=== PATIENT | male | born 1960 | race Caucasian/White ===

== ENCOUNTER 2018-11-02 14:45 | Inpatient (IN) | payer MEDICAID ==
[2018-11-02] MEDS ORDERED: Sodium Chloride 0.9% 1,000 ML IV ONE (15:12)
--- NOTE | 2018-11-02 15:14 | ED Physician Chart ---
ED Chief Complaint/HPI - Patient Information Date Seen:: 11/02/18 Time Seen:: 14:50 Chief Complaint:: Fever History of Present Illness:: onset x 3 days of fever, cough, congestion, and weakness; no report of trauma, H /As, neck pain, C/P, SOB, Abd. Pain, A/N/V/D/C, chills, or urinary s/s Historian:: Patient, EMS Review:: Nurse's Note Reviewed, Old Chart Reviewed, EMS run form Reviewed ED Review of Systems - Review of Systems General/Constitutional: Fever, No chills, No weight loss, Weakness, No diaphoresis, No edema, No loss of appetite Skin: No skin lesions, No rash, No bruising Head: No headache, No light-headedness Eyes: No loss of vision, No pain, No diplopia ENT: No earache, No nasal drainage, No sore throat, No tinnitus Neck: No neck pain, No swelling, No thyromegaly, No stiffness, No mass noted Cardio Vascular: No chest pain, No palpitations, No PND, No orthopnea, No edema Pulmonary: No SOB, No cough, No sputum, No wheezing GI: No nausea, No vomiting, No diarrhea, No pain, No melena, No hematochezia, No constipation, No hematemesis G/U: No dysuria, No frequency, No hematuria, No nacturia Musculoskeletal: No bone or joint pain, No back pain, No muscle pain Endocrine: No polyuria, No polydipsia Psychiatric: No prior psych history, No depression, No anxiety, No suicidal ideation, No homicidal ideation, No auditory hallucination, No visual hallucination Hematopoietic: No bruising, No lymphadenopathy Allergic/Immuno: No urticaria, No angioedema Neurological: No syncope, No focal symptoms, Weakness, No paresthesia, No headache, No seizure, No dizziness, Confusion, No vertigo ED Past Medical History - Past Medical History Obtainable: Yes Past Medical History: HTN, Dementia Family History: HTN Social History: Non Smoker, No Alcohol, No Drug Use, Single, Care Facility Surgical History: None Psychiatricy History: Dementia Medication: Reviewed Family Medical History - Family Member Mother History Unknown: Yes ED Physical Exam - Physical Examination General/Constitutional: Awake, Well-developed, well-nourished, Alert, No distress, GCS 15, Non-toxic appearing, Ambulatory Head: Atraumatic Eyes: Lids, conjuctiva normal, PERRL, EOMI Skin: Nl inspection, No rash, No skin lesions, No ecchymosis, Well hydrated, No lymphadenopathy ENMT: External ears, nose nl, TM canals nl, Nasal exam nl, Lips, teeth, gums nl , Oropharynx nl, Tonsils nl Neck: Nontender, Full ROM w/o pain, No JVD, No nuchal rigidity, No bruit, No mass, No stridor Other Neck comments:: supple; no meningeal signs; no cervical tenderness; no bruits Respiratory: Nl effort/Exclusion Other Respiratory comments:: Lungs: + Rales and Rhonchi Cardio Vascular: RRR, No murmur, gallop, rubs, NL S1 S2, Carotid/Femoral/Distal pulses equal bilaterally GI: No tenderness/rebounding/guarding, No organomegaly, No hernia, Normal BS's, Nondistended, No mass/bruits, No McBurney tenderness, Rectum exam nl Other GI comments:: no pulsatile masses : No CVA tenderness Extremities: No tenderness or effusion, Full ROM, normal strength in all extremities, No edema, Normal digits & nails Neuro/Psych: Alert/oriented, DTR's symmetric, Normal sensory exam, Normal motor strength, Judgement/insight normal, Mood normal, Normal gait, No focal deficits Misc: Normal back, No paraspinal tenderness ED Labs/Radiology/EKG Results - Lab Results Comments:: Reviewed - Radiology Results Comments:: CXR: + Infiltrate - EKG Interpretations EKG Time:: 16:09 Rate & Rhythm: 106; ST Comments:: non-specific st-t changes ED Septic Shock - . Is Septic Shock (SBP<90, OR Lactate>4 mmol\L) present?: No ED Reassessment (Disposition) - Reassessment Reassessment Condition:: Improved - Diagnosis Diagnosis:: Weakness; Fever; Cough; Congestion; Leukocytosis; Anemia; Hyperglycemia; Tachycardia; Hypotension; Hypovolemia; Dehydration; Hypokalemia; Hypoalbuminemia ; Pneumonia; Sepsis - Aftercare/Follow up Instructions Aftercare/Follow-Up Instructions:: Counseled pt regarding lab results/diagnosis & need follow up, Counseled pt & family regarding lab results/diagnosis & need follow up - Patient Disposition Discharge/Transfer:: Acute Care w/in this hosp Accepting Physician:: Dr. Rose Marie Rondon Time Called:: 1644 Time Responded:: 16:45 Admitted to:: Telemetry Spoke to:: Dr. Rose Marie Rondon Admitting Medical Physician:: Dr. Rose Marie Rondon Condition at Disposition:: Stable, Improved
[2018-11-02 15:54] LABS: HEMOGLOBIN 8.8 gm/dL (12-16); MEAN CELL VOLUME 86.2 fl (80-99); MEAN CORPUSCULAR HEMOGLOBIN 28.1 pg (26.0-30.0); MEAN CORPUSCULAR HGB CONC 32.6 pg (28.0-36.0); PLATELET COUNT 466 Th/cmm (150-400); RED BLOOD COUNT 3.14 Mil/cmm (4.30-5.70); RED CELL DISTRIBUTION WIDTH 19.8 % (11.5-20.0); WHITE BLOOD COUNT 13.1 Th/cmm (4.8-10.8)
[2018-11-02 16:09] LABS: ALB/GLOB RATIO 0.7 (1.0-1.8); ALKALINE PHOSPHATASE 63 U/L (34-104); ANION GAP 14.4 (7.0-16.0); BILIRUBIN,TOTAL 0.4 mg/dL (0.3-1.0); BUN - UREA NITROGEN 17 mg/dL (7-25); CALCIUM SERUM 8.4 mg/dL (8.6-10.3); CARBON DIOXIDE 24.9 mEq/L (21.0-31.0); CHLORIDE 101 mEq/L (98-107); CREATININE - SERUM 0.6 mg/dL (0.7-1.3); CREATININE KINASE 11 U/L (30-223); GFR AFRICAN-AMERICAN > 60.0 ml/min (>90); GFR NON AFRICAN-AMERICAN > 60.0 ml/min; GLUCOSE 187 mg/dL (70-105); POTASSIUM SERUM 3.3 mEq/L (3.5-5.1); SGOT 8 U/L (13-39); SGPT/ALT 8 U/L (7-52); SODIUM SERUM 137 mEq/L (136-145); TOTAL PROTEIN,SERUM 7.2 gm/dL (6.0-8.3)
[2018-11-02] MEDS ORDERED: Potassium Chloride 20 mEq ER Tab PO ONE ×3 (16:29→17:22)
[2018-11-02 16:42] LABS: LYMPHOCYTE 10 % (20-50); MONOCYTE 3 % (2-10); NEUTROPHILS 87 % (40-80)
[2018-11-02 16:43] LABS: INR 1.06 (0.5-1.4)
[2018-11-02 16:53] LABS: BAND NEUTROPHILE 0 % (0-10); EOSINOPHIL 0 % (0-5); LYMPHOCYTE 10 % (20-50); MONOCYTE 3 % (2-10); NEUTROPHILS 87 % (40-80)
[2018-11-02 16:55] LABS: PLATELET ESTIMATE INCREASED PLATELETS (NORMAL)
[2018-11-02] MEDS ORDERED: cefTRIAXone 1 GM in Sodium Chloride 0.9% 50 ML IV ONE (18:16)
[2018-11-02] MEDS ORDERED: Azithromycin 500 MG in Sodium Chloride 0.9% 250 ML IV SCH (20:00)
[2018-11-02] MEDS: Sodium Chloride 0.9% 1,000 ML IV SCH (20:56)
[2018-11-03 02:44] VITALS: BP 116/67
[2018-11-03 08:05] LABS: A1C 7.1 % (4.8-5.6)
--- NOTE | 2018-11-03 09:16 | Diagnostic Imaging Report ---
CHEST X-RAY: AP view INDICATION: Fever COMPARISON: None FINDINGS: Right PICC line is seen with tip in the cavoatrial junction. Low lung volumes are seen with increased bibasilar lung markings and probable trace effusions. Heart size is normal. Degenerative changes of the spine are noted. Gas-filled loops of bowel of the upper abdomen are noted with gas-filled stomach IMPRESSION: Low lung volumes. Bibasal atelectasis versus infiltrates are noted. Clinical correlation recommended. Right PICC line with tip in the cavoatrial junction.
[2018-11-03] MEDS: Sodium Chloride 0.9% 1,000 ML IV SCH (11:28)
[2018-11-03 21:46] LABS: URINE SOURCE MIDSTREAM
[2018-11-03 21:48] LABS: URINE BILIRUBIN NEGATIVE (NEGATIVE); URINE BLOOD NEGATIVE (NEGATIVE); URINE GLUCOSE (UA) NEGATIVE (NEGATIVE); URINE KETONE NEGATIVE (NEGATIVE); URINE LEUKOCYTE ESTERASE TRACE (NEGATIVE); URINE MICROSCOPIC INDICATED? YES; URINE NITRATE NEGATIVE (NEGATIVE); URINE PH 5.5 (4.6 - 8.0); URINE PROTEIN 30 mg/dL (NEGATIVE); URINE UROBILINOGEN 0.2 E.U./dL (0.2 - 1.0)
[2018-11-03 22:04] LABS: URINE CLARITY HAZY (CLEAR); URINE COLOR YELLOW
[2018-11-03 22:08] LABS: URINE BACTERIA FEW /hpf (NONE SEEN); URINE EPITHELIAL CELLS RARE /lpf (FEW); URINE RBC NONE SEEN /hpf (0-5)
--- NOTE | 2018-11-04 00:04 | History & Physical ---
ADMIT DATE: 11/02/2018 CHIEF COMPLAINT: Shortness of breath, suspect pneumonia. HISTORY OF PRESENT ILLNESS: The patient is a 58-year-old male with a past medical history of partial colectomy performed at [facility] in 08/2018, hypertension, dementia, brought in from nursing facility, [facility] for weakness, fatigue, pallor skin, chills, dizziness. It was associated with the fever of 3 days, but the patient stated that he was having diarrhea for last 2 months after his surgery. On initial evaluation, the patient's vital signs showed temperature 101 degrees Fahrenheit, pulse 121, respiration 18, blood pressure 94/61. WBC count 13,100, hemoglobin 8.8, hematocrit 27, platelets are 466,000, neutrophil 87%. I was told the diagnosis of sepsis and pneumonia by ER physician. So, the patient was started on Zosyn and Zithromax. After discussion with the patient's sister, I was informed that the patient had some collapsed bowel diagnosed at [facility] and required colectomy. The patient was suffering from anorexia and weakness for the last few months. So, ultimately he went to [facility] for further evaluation and management. Over there, he was found to have some colonic abnormality, required immediate partial colectomy. After that, the patient went to [facility]. From there, he went to [facility] for a few days for questionable infection. He was brought back again after around 1 week of stay to same [facility]. ALLERGIES: NKDA. PAST MEDICAL HISTORY: Includes as per the ____ chart, the patient has history of pneumonia. The patient has a lack of coordination. The patient has history of abnormal gait mobility, dependence on supplemental oxygen, hyperlipidemia, anemia, unspecified diabetes mellitus type 2, idiopathic peripheral autonomic neuropathy, glaucoma, benign prostatic hypertrophy without lower urinary tract symptoms and chronic diarrhea. SOCIAL HISTORY: The patient lives at nursing facility since his last surgery. No history of smoking, alcohol or drug use. TRAVEL HISTORY: None. IMMUNIZATION STATUS: Up-to-date. REVIEW OF SYSTEMS: GENERAL: The patient had a fever for the last 3 days as well as the chills. Denies any generalized weakness. HEENT: The patient denies any diplopia, photophobia or sore throat. RESPIRATORY: The patient has occasional cough, no shortness of breath. CARDIOVASCULAR: The patient denies any chest pain or palpitations. GASTROINTESTINAL: The patient denies any nausea, vomiting, abdominal pain or constipation. The patient complains of watery diarrhea. GENITOURINARY: The patient denies any dysuria or hematuria. CENTRAL NERVOUS SYSTEM: No headache, no dizziness, no focal weakness. PHYSICAL EXAMINATION: CURRENT VITAL SIGNS: Shows temperature is 98.8 degrees Fahrenheit, T-max of 101 degrees Fahrenheit, pulse 85, respiration is 19 and blood pressure 95/64. GENERAL: The patient is comfortable, lying in the bed, not in acute distress. HEENT: Head is normocephalic, atraumatic. Oral cavity moist, pink tongue. EYES: Pallor is present, no icterus. Pupils PERRLA, EOMI. NECK: Supple, no JVD, no carotid bruit. Trachea in midline. CHEST: Bilateral breath sounds. No crackles or wheezing. CARDIOVASCULAR: S1, S2 within normal limits. Regular rhythm. No murmur, no gallop. ABDOMEN: Soft, nontender, nondistended. Bowel sounds present. The patient has a long surgical incision in the midline, healed completely. EXTREMITIES: No cyanosis, no clubbing, no edema. NEUROLOGICAL: Alert, awake, oriented x 3. No focal deficit. LABORATORY DATA: Current lab shows WBC count is 13,100, hemoglobin 8.8, hematocrit 27, platelets are 466,000, neutrophils 87%, lymphocytes 10%. INR 1.06. Sodium 137, potassium 3.3, chloride 101, bicarb is 24.9, BUN is 17, creatinine is 0.6, glucose is 187. LFTs are reviewed and chest x-ray showed low lung volume, bibasilar atelectasis versus infiltrate are noted. Right PICC line with the tip in the cavoatrial junction. IMPRESSION: 1. Sepsis. 2. Suspect pneumonia. 3. Chronic diarrhea, rule out Clostridium difficile colitis. 4. Diabetes mellitus type 2. 5. Hypertension. 6. Anemia. 7. Benign prostatic hypertrophy. RECOMMENDATIONS AND PLAN: We will get a GI consultation. We will try to get the records from [facility] and do the sepsis workup and get a CT scan of abdomen and pelvis. Check the stool cultures, stool for occult blood and WBC. Antibiotic penn, continue Zosyn. Discontinue Zithromax and start Flagyl. [facility]# [id number]
[2018-11-04] MEDS: Sodium Chloride 0.9% 1,000 ML IV SCH ×2 (05:33→20:43)
[2018-11-04 05:54] LABS: HEMATOCRIT 25.3 % (41.0-60); HEMOGLOBIN 8.5 gm/dL (12-16); MEAN CORPUSCULAR HGB CONC 33.4 pg (28.0-36.0); PLATELET COUNT 404 Th/cmm (150-400); RED BLOOD COUNT 2.91 Mil/cmm (4.30-5.70); RED CELL DISTRIBUTION WIDTH 19.5 % (11.5-20.0)
[2018-11-04 05:59] LABS: WHITE BLOOD COUNT 16.9 Th/cmm (4.8-10.8)
[2018-11-04 06:13] LABS: ANION GAP 12.1 (7.0-16.0); BUN - UREA NITROGEN 11 mg/dL (7-25); CARBON DIOXIDE 21.5 mEq/L (21.0-31.0); CHLORIDE 103 mEq/L (98-107); CREATININE - SERUM 0.6 mg/dL (0.7-1.3); GFR AFRICAN-AMERICAN > 60.0 ml/min (>90); GFR NON AFRICAN-AMERICAN > 60.0 ml/min; GLUCOSE 140 mg/dL (70-105); SODIUM SERUM 134 mEq/L (136-145)
[2018-11-04 06:33] LABS: POTASSIUM SERUM 2.6 mEq/L (3.5-5.1)
[2018-11-04] MEDS ORDERED: Diatrizoate Meglumine/Diatri 30 mL Sol PO ONE (08:00)
[2018-11-04] MEDS ORDERED: Potassium Chloride 20 mEq ER Tab PO ONE (08:32)
[2018-11-04] MEDS: Potassium Chloride 20 mEq ER Tab PO SCH ×2 (11:01→12:42)
[2018-11-04] MEDS: Vancomycin HCL 250 mg /10mL UDC PO SCH ×4 (11:04→20:41)
--- NOTE | 2018-11-04 15:01 | Diagnostic Imaging Report ---
CT scan abdomen and pelvis without intravenous contrast HISTORY: Pain, abscess Total DLP equals 620 CTDI equals 10.2 Axial sections were obtained from the xiphoid process down to the pubic symphysis. Limited sections through the lower chest demonstrate pleural thickening in the right and left lower hemithoracic regions along with nonspecific parenchymal changes within the lower lobes consistent with atelectasis and/or consolidation. No focal hepatic lesions are seen. There is a rather markedly dilated gallbladder. Etiology uncertain. No focal amenities seen within the pancreas. There is an approximate 5 mm calculus within the medullary region of the right kidney. No hydronephrosis. Mild perinephric stranding on the right side. No focal lesions seen within the left kidney. Mild perinephric stranding. There is severe generalized thickening throughout the wall of the sigmoid colon and rectum. Extensive abnormal pericolonic density noted. Generalized haziness and abnormal changes through the mesentery suggesting a small amount of fluid. Surgical changes noted in the vicinity of the descending colon near the sigmoid. No discrete abnormal soft tissue masses are seen within the pelvis. No abnormal loculated fluid collections are seen. Specifically, no definite abscess formation. IMPRESSION: 1. Extensive abnormal changes associated with marked thickening of the bowel wall through the sigmoid colon and rectum. Associated extensive abnormal changes within the adjacent pericolonic fat and mesentery. Findings may be associated with severe colitis. The changes should be correlated clinically and with patient history. 2. Markedly dilated gallbladder. Significance uncertain. 3. Surgical changes in the vicinity of the descending colon near the junction with the sigmoid colon. 4. Nonobstructing right renal calculus
[2018-11-05 05:35] LABS: % EOSINOPHILS 2.8 % (0.0-5.0); % LYMPHOCYTES 11.4 % (20.0-50.0); % MONOCYTES 7.5 % (2.0-10.0); % NEUTROPHILS 77.3 % (40.0-80.0); BASOPHILE ABSOLUTE 0.1 Th/cumm (0-0.2); EOSINOPHILE ABSOLUTE 0.3 Th/cmm (0.1-0.4); HEMATOCRIT 24.6 % (41.0-60); HEMOGLOBIN 8.2 gm/dL (12-16); LYMPHOCYTE ABSOLUTE 1.3 Th/cmm (1.5-3.0); MEAN CELL VOLUME 86.1 fl (80-99); MEAN CORPUSCULAR HEMOGLOBIN 28.8 pg (26.0-30.0); MEAN CORPUSCULAR HGB CONC 33.4 pg (28.0-36.0); MONOCYTE ABSOLUTE 0.8 Th/cmm (0.3-1.0); NEUTROPHILE ABSOLUTE 8.8 Th/cmm (1.8-8.0); PLATELET COUNT 412 Th/cmm (150-400); RED BLOOD COUNT 2.86 Mil/cmm (4.30-5.70); RED CELL DISTRIBUTION WIDTH 19.5 % (11.5-20.0); WHITE BLOOD COUNT 11.3 Th/cmm (4.8-10.8)
[2018-11-05 05:53] LABS: ANION GAP 9.8 (7.0-16.0); BUN - UREA NITROGEN 8 mg/dL (7-25); CALCIUM SERUM 7.9 mg/dL (8.6-10.3); CARBON DIOXIDE 21.8 mEq/L (21.0-31.0); CHLORIDE 106 mEq/L (98-107); CREATININE - SERUM 0.6 mg/dL (0.7-1.3); GFR AFRICAN-AMERICAN > 60.0 ml/min (>90); GFR NON AFRICAN-AMERICAN > 60.0 ml/min; GLUCOSE 153 mg/dL (70-105); SODIUM SERUM 135 mEq/L (136-145)
[2018-11-05 06:07] LABS: POTASSIUM SERUM 2.5 mEq/L (3.5-5.1)
--- NOTE | 2018-11-05 07:03 | Consultation ---
DATE OF CONSULTATION: 11/04/2018 INPATIENT GASTROINTESTINAL CONSULTATION REFERRING PHYSICIAN: Dr. Sylvester Rondon. REASON FOR CONSULTATION: Diarrhea. HISTORY OF PRESENT ILLNESS: This is a 58-year-old male who comes to the hospital with pneumonia and was found to have diarrhea for the last 11 days. The patient states that it is just watery diarrhea without any melena or hematochezia. He states that he had a colonoscopy approximately 3 months ago that was unremarkable, but then developed some sort of bowel obstruction requiring a partial colectomy in the [facility], but he cannot be more specific. PAST MEDICAL HISTORY: Pneumonia, hyperlipidemia, COPD, diabetes, peripheral autonomic neuropathy, glaucoma, BPH, UTI, chronic diarrhea. PAST SURGICAL HISTORY: Hemicolectomy. FAMILY HISTORY: Noncontributory. SOCIAL HISTORY: Denies tobacco, alcohol or IV drug usage. ALLERGIES: None. CURRENT MEDICATIONS: Flagyl, Protonix, Zosyn, vancomycin. REVIEW OF SYSTEMS: Ten point review of system was performed and the pertinent positive was the diarrhea and pneumonia. Other systems were otherwise negative. PHYSICAL EXAMINATION: VITAL SIGNS: Temperature 97.4, breathing 18, pulse of 80, blood pressure is 100/63, satting 98%. GENERAL: In no apparent distress. EYES: Anicteric. Normal conjunctivae. HEENT: Normocephalic, atraumatic. Moist mucous membranes. NECK: Soft, supple. CHEST: Some coarse breath sounds. CARDIOVASCULAR: Regular rate and rhythm. ABDOMEN: Soft, nontender, nondistended with a scar. SKIN: Warm, dry. EXTREMITIES: Reveal no cyanosis. PSYCHOLOGIC: Alert and oriented x 3. LABORATORY DATA: Show white count 16.9, hemoglobin 8.5, platelets 404. INR 1.06. LFTs within normal limits. Albumin is 3, creatinine 0.6. IMPRESSION: A 58-year-old male with acute on chronic diarrhea. Cause could be related to his autonomic neuropathy. He does have diabetes, so he could be at risk for pancreatic exocrine insufficiency. He has had part of his bowel removed and so it could also be due to a bile acid malabsorption or fat malabsorption. The fact that he had a colonoscopy earlier this year was normal. He is likely reassuring that there is no infectious or inflammatory bowel disease going on. Nevertheless, the white count is elevated and a stool C. diff should be sent. PLAN: 1. Get records of colonoscopy and operative report ____ community. 2. Check stool C. difficile. 3. Continue antibiotics. 4. Consider trial of cholestyramine. 5. If cholestyramine does not work, consider pancreatic enzymes. Thank you for allowing me to participate. Please call me if any questions. JOB# [id number]
[2018-11-05] MEDS: Vancomycin HCL 250 mg /10mL UDC PO SCH ×4 (08:43→20:37)
[2018-11-05] MEDS: Potassium Chloride 20 mEq ER Tab PO SCH ×3 (08:44→16:08)
--- NOTE | 2018-11-05 09:35 | GI Progress Note ---
Subjective - Review of Systems Service Date: 11/05/18 Events since last encounter: no complaints, has positive C diff, on appropriate treatment GI OBJECTIVE - Results Result Diagrams: 11/05/18 05:07 11/05/18 05:07 Recent Labs: Laboratory Last Values WBC 11.3 Th/cmm (4.8-10.8) H D 11/05/18 05:07 RBC 2.86 Mil/cmm (4.30-5.70) L 11/05/18 05:07 Hgb 8.2 gm/dL (12-16) L 11/05/18 05:07 Hct 24.6 % (41.0-60) L 11/05/18 05:07 MCV 86.1 fl (80-99) 11/05/18 05:07 MCH 28.8 pg (26.0-30.0) 11/05/18 05:07 MCHC Differential 33.4 pg (28.0-36.0) 11/05/18 05:07 RDW 19.5 % (11.5-20.0) 11/05/18 05:07 Plt Count 412 Th/cmm (150-400) H 11/05/18 05:07 MPV 7.3 fl 11/05/18 05:07 Add Manual Diff YES 11/02/18 15:40 Neutrophils % 77.3 % (40.0-80.0) 11/05/18 05:07 Band Neutrophils % 0 % (0-10) 11/02/18 15:40 Lymphocytes % 11.4 % (20.0-50.0) L 11/05/18 05:07 Monocytes % 7.5 % (2.0-10.0) 11/05/18 05:07 Eosinophils % 2.8 % (0.0-5.0) 11/05/18 05:07 Basophils % 1.0 % (0.0-2.0) 11/05/18 05:07 Neutrophils (Manual) 87 % (40-80) H 11/02/18 15:40 Lymphocytes 10 % (20-50) L 11/02/18 15:40 Monocytes 3 % (2-10) 11/02/18 15:40 Eosinophils 0 % (0-5) 11/02/18 15:40 Platelet Estimate INCREASED PLATELETS (NORMAL) 11/02/18 15:40 PT 11.0 SECONDS (9.5-11.5) 11/02/18 15:40 INR 1.06 (0.5-1.4) 11/02/18 15:40 PTT (Actin FS) 30.1 SECONDS (26.0-38.0) 11/02/18 15:40 Sodium 135 mEq/L (136-145) L 11/05/18 05:07 Potassium 2.5 mEq/L (3.5-5.1) L* 11/05/18 05:07 Chloride 106 mEq/L (98-107) 11/05/18 05:07 Carbon Dioxide 21.8 mEq/L (21.0-31.0) 11/05/18 05:07 Anion Gap 9.8 (7.0-16.0) 11/05/18 05:07 BUN 8 mg/dL (7-25) 11/05/18 05:07 Creatinine 0.6 mg/dL (0.7-1.3) L 11/05/18 05:07 Est GFR ( Amer) > 60.0 ml/min (>90) 11/05/18 05:07 Est GFR (Non-Af Amer) > 60.0 ml/min 11/05/18 05:07 BUN/Creatinine Ratio 13.3 11/05/18 05:07 Glucose 153 mg/dL (70-105) H 11/05/18 05:07 Whole Bld Lactic Acid 0.73 mmol/L (0.60-1.99) 11/02/18 15:40 Calcium 7.9 mg/dL (8.6-10.3) L 11/05/18 05:07 Magnesium 1.5 mg/dL (1.9-2.7) L 11/05/18 05:07 Total Bilirubin 0.4 mg/dL (0.3-1.0) 11/02/18 15:40 AST 8 U/L (13-39) L 11/02/18 15:40 ALT 8 U/L (7-52) 11/02/18 15:40 Alkaline Phosphatase 63 U/L (34-104) 11/02/18 15:40 Creatine Kinase 11 U/L (30-223) L 11/02/18 15:40 Troponin I 0.01 ng/mL (0.01-0.05) 11/02/18 15:40 C-Reactive Protein 22.6 mg/dL (0.0-0.9) H 11/04/18 05:45 Total Protein 7.2 gm/dL (6.0-8.3) 11/02/18 15:40 Albumin 3.0 gm/dL (4.2-5.5) L 11/02/18 15:40 Globulin 4.2 gm/dL 11/02/18 15:40 Albumin/Globulin Ratio 0.7 (1.0-1.8) L 11/02/18 15:40 Urine Source MIDSTREAM 11/03/18 18:30 Urine Color YELLOW 11/03/18 18:30 Urine Clarity HAZY (CLEAR) 11/03/18 18:30 Urine pH 5.5 (4.6 - 8.0) 11/03/18 18:30 Ur Specific [place] 1.025 (1.005-1.030) 11/03/18 18:30 Urine Protein 30 mg/dL (NEGATIVE) H 11/03/18 18:30 Urine Glucose (UA) NEGATIVE mg/dL (NEGATIVE) 11/03/18 18:30 Urine Ketones NEGATIVE mg/dL (NEGATIVE) 11/03/18 18:30 Urine Blood NEGATIVE (NEGATIVE) 11/03/18 18:30 Urine Nitrate NEGATIVE (NEGATIVE) 11/03/18 18:30 Urine Bilirubin NEGATIVE (NEGATIVE) 11/03/18 18:30 Urine Urobilinogen 0.2 E.U./dL (0.2 - 1.0) 11/03/18 18:30 Ur Leukocyte Esterase TRACE (NEGATIVE) H 11/03/18 18:30 Urine RBC NONE SEEN /hpf (0-5) 11/03/18 18:30 Urine WBC 6-10 /hpf (0-5) 11/03/18 18:30 Ur Epithelial Cells RARE /lpf (FEW) 11/03/18 18:30 Urine Bacteria FEW /hpf (NONE SEEN) 11/03/18 18:30 Stool Occult Blood POSITIVE (NEGATIVE) H 11/04/18 16:45 Stool Leukocyte MODERATE WBC SEEN 11/04/18 16:45 - Physical Exam Vitals and I&O: Vital Signs Temp 97.2 F 11/05/18 08:00 Pulse 83 11/05/18 08:00 Resp 17 11/05/18 08:00 BP 100/74 11/05/18 08:00 Pulse Ox 99 11/05/18 08:00 Intake & Output 11/04/18 11/05/18 11/05/18 18:59 06:59 18:59 Intake Total 820 1010 Balance 820 1010 Weight (lbs) 80.286 kg Intake: Intake, IV Amount 100 1010 Piperacillin Sodium/ 100 100 Tazobact 4.5 gm In Sodium Chloride 0.9% 100 ml @ 100 mls/hr IV Q8HR [facility] Rx #:[id number] Sodium Chloride 0.9% 1, 910 000 ml @ 60 mls/hr IV . [id number] [facility] Rx#:[id number] Oral 720 Other: # Voids 4 # Bowel Movements 4 Stool Characteristics Liquid Liquid Liquid Weight Source Bedscale Active Medications: Current Medications Cholestyramine Resin (Questran) 4 gm PO 1000 [facility] Stop: 01/03/19 08:59 Last Admin: 11/04/18 11:04 Dose: 4 gm Sodium Chloride (Nacl 0.9%) 1,000 mls @ 60 mls/hr IV .[id number] [facility] Stop: 01/01/19 18:59 Last Admin: 11/04/18 20:43 Dose: 60 mls/hr Piperacillin Sod/Tazobactam (Sod 4.5 gm/ Sodium Chloride) 100 mls @ 100 mls/hr IV Q8HR [facility] Stop: 01/01/19 20:59 Last Admin: 11/05/18 05:32 Dose: 100 mls/hr Pantoprazole Sodium (Protonix) 40 mg IVP DAILY [facility] Stop: 01/02/19 08:59 Last Admin: 11/05/18 08:44 Dose: 40 mg Potassium Chloride (Klor-Con) 40 meq PO Q4HR [facility] Stop: 11/05/18 16:01 Last Admin: 11/05/18 08:44 Dose: 40 meq Vancomycin HCl (Vancomycin Oral) 250 mg PO QID [facility] Stop: 01/03/19 08:59 Last Admin: 11/05/18 08:43 Dose: 250 mg General: Oriented x3, Cooperative HEENT: Atraumatic, PERRLA Cardiovascular: Regular rate, Normal S1, Normal S2 Abdomen: Bowel sounds Assessment/Plan - Assessment Assessment: 1. C diff colitis 2. Diarrhea 3. History of subtotal colectomy 4. Abdominal distention -Diarrhea likely from C diff - continue with PO vanco -Added cholestyramine and continue this medication -Supportive care -Will follow
[2018-11-05] MEDS ORDERED: Mag Sulfate 2gm/50mL Premix 2 GM/50 ML BAG IV ONE (11:37)
--- NOTE | 2018-11-05 11:59 | Progress Notes ---
DATE: 11/04/2018 INFECTIOUS DISEASE PROGRESS NOTE SUBJECTIVE: The patient is lying in bed, in no acute distress, no fever, no chills. OBJECTIVE: VITAL SIGNS: Current vital signs shows temperature is 97.6 degrees Fahrenheit, pulse 80, respirations 18, and blood pressure 93/58. GENERAL: The patient is comfortable lying in bed, in no acute distress. HEENT: Head is normocephalic, atraumatic. Oral cavity moist, pink tongue. NECK: Supple. No JVD. No carotid bruit. Trachea midline. CHEST: Bilateral breath sounds. No crackles or wheezing. HEART: S1, S2 within normal limits. Regular rhythm. No murmur, no gallop. ABDOMEN: Soft, nontender, nondistended. Bowel sounds present. EXTREMITIES: No cyanosis, no clubbing, no edema. NEUROLOGICAL: Alert, awake, and oriented x 3. LABORATORY DATA: Current lab shows WBC count is 16,900, hemoglobin 8.5, hematocrit 24.3, platelets are 404,000. Sodium is 134, potassium 2.6, chloride 103, bicarbonate is 21.5, BUN is 11, creatinine 0.6, glucose 140. Stool for occult blood is positive. IMPRESSION: 1. Sepsis. 2. Suspect pneumonia. 3. Clostridium difficile colitis. 4. Diabetes mellitus type 2. 5. Hypertension. 6. Anemia. 7. Benign prostatic hypertrophy. RECOMMENDATIONS: Started vancomycin p.o. and discontinue Flagyl. Continue Zosyn. CT scan of abdomen and pelvis showed ____ with marked thickening of the bowel wall to the sigmoid colon and rectum. Extensive ____ changes within the adjacent pericolic fat and mesentery, finding may be associated with severe colitis, markedly dilated gallbladder, significantly uncertain surgical changes in the vicinity of the descending colon near the junction of the sigmoid colon, nonobstructing right renal calculus. JOB# [id number]
[2018-11-05] MEDS: 0.9% NS w/20 mEq KCL 1,000 ML IV SCH (16:19)
--- NOTE | 2018-11-06 05:40 | Infectious Disease Prog Note ---
Infectious Disease Subjective - Review of Systems Service Date: 11/06/18 Events since last encounter: none. Subjective: diarrhea present. Infectious Disease Objective - Results Result Diagrams: 11/05/18 05:07 11/05/18 18:00 Recent Labs: Laboratory Last Values WBC 11.3 Th/cmm (4.8-10.8) H D 11/05/18 05:07 RBC 2.86 Mil/cmm (4.30-5.70) L 11/05/18 05:07 Hgb 8.2 gm/dL (12-16) L 11/05/18 05:07 Hct 24.6 % (41.0-60) L 11/05/18 05:07 MCV 86.1 fl (80-99) 11/05/18 05:07 MCH 28.8 pg (26.0-30.0) 11/05/18 05:07 MCHC Differential 33.4 pg (28.0-36.0) 11/05/18 05:07 RDW 19.5 % (11.5-20.0) 11/05/18 05:07 Plt Count 412 Th/cmm (150-400) H 11/05/18 05:07 MPV 7.3 fl 11/05/18 05:07 Add Manual Diff YES 11/02/18 15:40 Neutrophils % 77.3 % (40.0-80.0) 11/05/18 05:07 Band Neutrophils % 0 % (0-10) 11/02/18 15:40 Lymphocytes % 11.4 % (20.0-50.0) L 11/05/18 05:07 Monocytes % 7.5 % (2.0-10.0) 11/05/18 05:07 Eosinophils % 2.8 % (0.0-5.0) 11/05/18 05:07 Basophils % 1.0 % (0.0-2.0) 11/05/18 05:07 Neutrophils (Manual) 87 % (40-80) H 11/02/18 15:40 Lymphocytes 10 % (20-50) L 11/02/18 15:40 Monocytes 3 % (2-10) 11/02/18 15:40 Eosinophils 0 % (0-5) 11/02/18 15:40 Platelet Estimate INCREASED PLATELETS (NORMAL) 11/02/18 15:40 PT 11.0 SECONDS (9.5-11.5) 11/02/18 15:40 INR 1.06 (0.5-1.4) 11/02/18 15:40 PTT (Actin FS) 30.1 SECONDS (26.0-38.0) 11/02/18 15:40 Sodium 135 mEq/L (136-145) L 11/05/18 05:07 Potassium 3.4 mEq/L (3.5-5.1) L 11/05/18 18:00 Chloride 106 mEq/L (98-107) 11/05/18 05:07 Carbon Dioxide 21.8 mEq/L (21.0-31.0) 11/05/18 05:07 Anion Gap 9.8 (7.0-16.0) 11/05/18 05:07 BUN 8 mg/dL (7-25) 11/05/18 05:07 Creatinine 0.6 mg/dL (0.7-1.3) L 11/05/18 05:07 Est GFR ( Amer) > 60.0 ml/min (>90) 11/05/18 05:07 Est GFR (Non-Af Amer) > 60.0 ml/min 11/05/18 05:07 BUN/Creatinine Ratio 13.3 11/05/18 05:07 Glucose 153 mg/dL (70-105) H 11/05/18 05:07 Whole Bld Lactic Acid 0.73 mmol/L (0.60-1.99) 11/02/18 15:40 Calcium 7.9 mg/dL (8.6-10.3) L 11/05/18 05:07 Magnesium 1.5 mg/dL (1.9-2.7) L 11/05/18 05:07 Total Bilirubin 0.4 mg/dL (0.3-1.0) 11/02/18 15:40 AST 8 U/L (13-39) L 11/02/18 15:40 ALT 8 U/L (7-52) 11/02/18 15:40 Alkaline Phosphatase 63 U/L (34-104) 11/02/18 15:40 Creatine Kinase 11 U/L (30-223) L 11/02/18 15:40 Troponin I 0.01 ng/mL (0.01-0.05) 11/02/18 15:40 C-Reactive Protein 22.6 mg/dL (0.0-0.9) H 11/04/18 05:45 Total Protein 7.2 gm/dL (6.0-8.3) 11/02/18 15:40 Albumin 3.0 gm/dL (4.2-5.5) L 11/02/18 15:40 Globulin 4.2 gm/dL 11/02/18 15:40 Albumin/Globulin Ratio 0.7 (1.0-1.8) L 11/02/18 15:40 Urine Source MIDSTREAM 11/03/18 18:30 Urine Color YELLOW 11/03/18 18:30 Urine Clarity HAZY (CLEAR) 11/03/18 18:30 Urine pH 5.5 (4.6 - 8.0) 11/03/18 18:30 Ur Specific [place] 1.025 (1.005-1.030) 11/03/18 18:30 Urine Protein 30 mg/dL (NEGATIVE) H 11/03/18 18:30 Urine Glucose (UA) NEGATIVE mg/dL (NEGATIVE) 11/03/18 18:30 Urine Ketones NEGATIVE mg/dL (NEGATIVE) 11/03/18 18:30 Urine Blood NEGATIVE (NEGATIVE) 11/03/18 18:30 Urine Nitrate NEGATIVE (NEGATIVE) 11/03/18 18:30 Urine Bilirubin NEGATIVE (NEGATIVE) 11/03/18 18:30 Urine Urobilinogen 0.2 E.U./dL (0.2 - 1.0) 11/03/18 18:30 Ur Leukocyte Esterase TRACE (NEGATIVE) H 11/03/18 18:30 Urine RBC NONE SEEN /hpf (0-5) 11/03/18 18:30 Urine WBC 6-10 /hpf (0-5) 11/03/18 18:30 Ur Epithelial Cells RARE /lpf (FEW) 11/03/18 18:30 Urine Bacteria FEW /hpf (NONE SEEN) 11/03/18 18:30 Stool Occult Blood POSITIVE (NEGATIVE) H 11/05/18 12:20 Stool Leukocyte MODERATE WBC SEEN 11/04/18 16:45 - Physical Exam Vitals and I&O: Vital Signs Temp 98.5 F 11/06/18 04:00 Pulse 63 11/06/18 04:00 Resp 17 11/06/18 04:00 BP 103/65 11/06/18 04:00 Pulse Ox 96 11/06/18 04:00 Intake & Output 11/05/18 11/05/18 11/06/18 06:59 18:59 06:59 Intake Total 1110 100 700 Balance 1110 100 700 Weight (lbs) 80.286 kg Intake: Intake, IV Amount 1110 100 100 Piperacillin Sodium/ 200 100 100 Tazobact 4.5 gm In Sodium Chloride 0.9% 100 ml @ 100 mls/hr IV Q8HR [facility] Rx #:[id number] Sodium Chloride 0.9% 1, 910 000 ml @ 60 mls/hr IV . [id number] [facility] Rx#:[id number] Oral 600 Other: # Voids 3 # Bowel Movements 4 Stool Characteristics Liquid Liquid Liquid Weight Source Bedscale Active Medications: Current Medications Cholestyramine Resin (Questran) 4 gm PO 1000 [facility] Stop: 01/03/19 08:59 Last Admin: 11/05/18 10:45 Dose: 4 gm Piperacillin Sod/Tazobactam (Sod 4.5 gm/ Sodium Chloride) 100 mls @ 100 mls/hr IV Q8HR [facility] Stop: 01/01/19 20:59 Last Infusion: 11/05/18 21:40 Dose: Infused Potassium Chloride/Sodium Chloride (0.9% Ns W/20 Meq Kcl) 1,000 mls @ 75 mls/ hr IV .[id number] [facility] Stop: 01/04/19 15:08 Last Admin: 11/05/18 16:19 Dose: 75 mls/hr Magnesium Oxide (Mag-Oxide) 400 mg PO DAILY [facility] Stop: 01/05/19 08:59 Pantoprazole Sodium (Protonix) 40 mg IVP DAILY [facility] Stop: 01/02/19 08:59 Last Admin: 11/05/18 08:44 Dose: 40 mg Vancomycin HCl (Vancomycin Oral) 250 mg PO QID [facility] Stop: 01/03/19 08:59 Last Admin: 11/05/18 20:37 Dose: 250 mg General: no acute distress, well developed, well nourished HEENT: atraumatic, normocephalic, PERRLA, EOMI, moist mucous membrane Neck: supple, no thyromegaly Cardiovascular: S1S2, regular Lungs: clear to auscultation bilaterally, clear to percussion Abdomen: soft, no tender, no hepatomegaly Extremities: no cyanosis, no clubbing, no edema Neurological: awake, alert, oriented Skin: intact Infectious Disease Assmt/Plan - Assessment Assessment: 1. Sepsis improving. 2. C diff colitis. 3. ? Pneumonia. 4. HTN. 5. DM2. 6. Anemia of CD. 7. Hypomagnesemia. 8. Hypokalemia. 9. h/o abdominal surgery. - Plan Plan: Continue vanco IV and Questran. Nutritional Asmnt/Malnutr-PDOC - Dietary Evaluation Malnutrition Findings (Please click <Entered> for more info): Nutritional Asmnt/Malnutrition Start: 11/03/18 16: 17 Text: Status: Complete Freq: Protocol: Document 11/03/18 16:21 RUSS (Rec: 11/03/18 16:28 [email or web address]) Nutritional Asmnt/Malnutrition Patient General Information Nutritional Screening High Risk Consult Diagnosis PNEUMONIA, SEPSIS Pertinent Medical Hx/Surgical Hx DEMENTIA, HTN Subjective Information IA, CONSULT: BLOOD SUGAR 187 PT DOWNGRADED TO MODERATE RISK HE IS EATING, WILL ASSESS/ MONITOR NUTRITION RELATED LABS AND PO INTAKE. PT IS A 58 YEAR OLD MALE ADMITTED ON 11/02 C/O FEVER, COUGH, CONGESTION, AND WEAKNESS X3 DAYS. PT ATE 100% OF SNACK PROVIDED. HT: 61 WT: 177 LB (80.45 KG) BMI: 23.35 (NORMAL) GI: WNL, SOFT, ROUND, NON- TENDER BM: 11/03 X3 (DIARRHEA) I/O: 872/NOT NOTED SKIN: WNL, WARM, DRY, ELASTIC, INTACT TRISTON: 17 DIET ORDER: CCHO 45GM, ELA, HIGH PROTEIN ESTIMATED ENERGY NEEDS: ( GERIATRIC, CBW) 1400-5681 KCALS (25-30 KCALS/ KG) 80-97 G PRO (1.0-1.2 G/KG) 8646-3575 ML (25-30 ML/KG) Current Diet Order/ Nutrition Support CCHO 45GM, ELA, HIGH PROTEIN Pertinent Medications PROTONIX, NACL 0.9% Pertinent Labs 11/02: HGB/HCT: 8.8/27.0, POTASS 3.3, BUN/CR 17/0.6, GLUCOSE 187, CA 8.4, AST 8, ALB 3.0 Nutritional Hx/Data Height 1.85 m Height (Calculated Centimeters) 185.4 Current Weight (lbs) 80.286 kg Weight (Calculated Kilograms) 80.3 Weight (Calculated Grams) 34496.8 [place] Body Weight 184 LB (83.64 KG) % [place] Body Weight 96 Body Mass Index (BMI) 23.3 Weight Status Approriate GI Symptoms GI Symptoms None Last BM 11/03 X3 (DIARRHEA) Skin Integrity/Comment: WNL, WARM, DRY, ELASTIC, INTACT TRISTON: 17 Estimated Nutritional Goals BEE in Kcals: Using Current wt Calories/Kcals/Kg 25-30 Kcals Calculated 8461-6372 Protein: Using Current wt Protein g/k.0-1.2 Protein Calculated 80-97 Fluid: ml 1338-1840 ML (25-30 ML/KG) Nutritional Problem 1. Problem Problem ALTERED NUTRITION RELATED LABS Etiology R/T PATHOPHYSIOLOGICAL CAUSES Signs/Symptoms: AEB POTASS 3.3, GLUCOSE 187, CA 8.4 Malnutrition Related to Morbid Obesity Malnutrition related to morbid obesity No Intervention/Recommendation Comments [facility], ELA, HIGH PROTEIN DIET ORDERED. Expected Outcomes/Goals Expected Outcomes/Goals 1. PO INTAKE TO MEET 75% OF NUTRITIONAL NEEDS. 2. MONITOR NPO STATUS, WT, NUTRITION RELATED LABS AND SKIN INTEGRITY. 3. NUTRITION RELATED LABS TO TREND WNL. 4. F/U HIGH RISK IN 2-3 DAYS, 11/05-11/06
--- NOTE | 2018-11-06 06:05 | Progress Notes ---
DATE: 11/05/2018 INFECTIOUS DISEASE PROGRESS NOTE SUBJECTIVE: The patient is lying in the bed, not in acute distress. The patient still has diarrhea, liquid bowel movement. No fever, no chills. OBJECTIVE: VITAL SIGNS: Current vital sign shows temperature is 97.5, pulse 75, respiration 20, blood pressure 98/65. GENERAL: The patient is comfortable lying in bed, in no acute distress. HEENT: Head is normocephalic, atraumatic. Oral cavity moist, pink tongue. NECK: Supple, no JVD, no carotid bruit. Trachea midline. CHEST: Bilateral breath sounds. No crackles or wheezing. HEART: S1, S2 within normal limits. Regular rhythm. No murmur, no gallop. ABDOMEN: Soft, nontender, nondistended. Bowel sounds present. EXTREMITIES: No cyanosis, no clubbing, no edema. NEUROLOGIC: Alert, awake, and oriented x 3. LABORATORY DATA: Current lab shows WBC count is 11,300, hemoglobin 8.2, hematocrit 24.6, platelets of ____, neutrophil is 77%. Sodium 135, potassium 2.5, supplementation given, it improved to 3.4, chloride 106, bicarbonate is 22, BUN is 8, creatinine 0.6, glucose 153. Stool for occult blood is positive, moderate wbc's seen. Stool for C. diff toxin is positive. IMPRESSION: 1. Clostridium difficile colitis. 2. Hypokalemia. 3. Hypomagnesemia. 4. Sepsis, improving. 5. Question of pneumonia. 6. Diabetes mellitus type 2. 7. Hypotension. 8. Anemia. 9. Benign prostatic hypertrophy. RECOMMENDATION AND PLAN: Continue vancomycin p.o. and continue Questran. Discontinue Zosyn. JOB# [id number]
[2018-11-06 06:34] LABS: BUN - UREA NITROGEN 5 mg/dL (7-25); CALCIUM SERUM 7.7 mg/dL (8.6-10.3); CARBON DIOXIDE 21.1 mEq/L (21.0-31.0); CHLORIDE 108 mEq/L (98-107); CREATININE - SERUM 0.5 mg/dL (0.7-1.3); GFR AFRICAN-AMERICAN > 60.0 ml/min (>90); GFR NON AFRICAN-AMERICAN > 60.0 ml/min; GLUCOSE 144 mg/dL (70-105); POTASSIUM SERUM 3.1 mEq/L (3.5-5.1); SODIUM SERUM 136 mEq/L (136-145)
[2018-11-06 06:59] LABS: % BASOPHILS 1.6 % (0.0-2.0); % EOSINOPHILS 3.1 % (0.0-5.0); % LYMPHOCYTES 15.9 % (20.0-50.0); % MONOCYTES 6.6 % (2.0-10.0); % NEUTROPHILS 72.8 % (40.0-80.0); BASOPHILE ABSOLUTE 0.1 Th/cumm (0-0.2); EOSINOPHILE ABSOLUTE 0.3 Th/cmm (0.1-0.4); LYMPHOCYTE ABSOLUTE 1.3 Th/cmm (1.5-3.0); MEAN CELL VOLUME 85.8 fl (80-99); MEAN CORPUSCULAR HEMOGLOBIN 28.8 pg (26.0-30.0); MEAN CORPUSCULAR HGB CONC 33.6 pg (28.0-36.0); MONOCYTE ABSOLUTE 0.5 Th/cmm (0.3-1.0); NEUTROPHILE ABSOLUTE 6.1 Th/cmm (1.8-8.0); PLATELET COUNT 413 Th/cmm (150-400); RED BLOOD COUNT 2.77 Mil/cmm (4.30-5.70); RED CELL DISTRIBUTION WIDTH 18.9 % (11.5-20.0); WHITE BLOOD COUNT 8.3 Th/cmm (4.8-10.8)
[2018-11-06 07:02] LABS: HEMATOCRIT 23.7 % (41.0-60)
[2018-11-06] MEDS ORDERED: Potassium Chloride 20 mEq ER Tab PO ONE (08:52)
--- NOTE | 2018-11-06 09:06 | GI Progress Note ---
Subjective - Review of Systems Service Date: 11/06/18 Events since last encounter: no new events GI OBJECTIVE - Results Result Diagrams: 11/06/18 05:45 11/06/18 05:40 Recent Labs: Laboratory Last Values WBC 8.3 Th/cmm (4.8-10.8) 11/06/18 05:45 RBC 2.77 Mil/cmm (4.30-5.70) L 11/06/18 05:45 Hgb 8.0 gm/dL (12-16) L 11/06/18 05:45 Hct 23.7 % (41.0-60) L 11/06/18 05:45 MCV 85.8 fl (80-99) 11/06/18 05:45 MCH 28.8 pg (26.0-30.0) 11/06/18 05:45 MCHC Differential 33.6 pg (28.0-36.0) 11/06/18 05:45 RDW 18.9 % (11.5-20.0) 11/06/18 05:45 Plt Count 413 Th/cmm (150-400) H 11/06/18 05:45 MPV 7.5 fl 11/06/18 05:45 Add Manual Diff YES 11/02/18 15:40 Neutrophils % 72.8 % (40.0-80.0) 11/06/18 05:45 Band Neutrophils % 0 % (0-10) 11/02/18 15:40 Lymphocytes % 15.9 % (20.0-50.0) L 11/06/18 05:45 Monocytes % 6.6 % (2.0-10.0) 11/06/18 05:45 Eosinophils % 3.1 % (0.0-5.0) 11/06/18 05:45 Basophils % 1.6 % (0.0-2.0) 11/06/18 05:45 Neutrophils (Manual) 87 % (40-80) H 11/02/18 15:40 Lymphocytes 10 % (20-50) L 11/02/18 15:40 Monocytes 3 % (2-10) 11/02/18 15:40 Eosinophils 0 % (0-5) 11/02/18 15:40 Platelet Estimate INCREASED PLATELETS (NORMAL) 11/02/18 15:40 PT 11.0 SECONDS (9.5-11.5) 11/02/18 15:40 INR 1.06 (0.5-1.4) 11/02/18 15:40 PTT (Actin FS) 30.1 SECONDS (26.0-38.0) 11/02/18 15:40 Sodium 136 mEq/L (136-145) 11/06/18 05:40 Potassium 3.1 mEq/L (3.5-5.1) L 11/06/18 05:40 Chloride 108 mEq/L (98-107) H 11/06/18 05:40 Carbon Dioxide 21.1 mEq/L (21.0-31.0) 11/06/18 05:40 Anion Gap 10.0 (7.0-16.0) 11/06/18 05:40 BUN 5 mg/dL (7-25) L 11/06/18 05:40 Creatinine 0.5 mg/dL (0.7-1.3) L 11/06/18 05:40 Est GFR ( Amer) > 60.0 ml/min (>90) 11/06/18 05:40 Est GFR (Non-Af Amer) > 60.0 ml/min 11/06/18 05:40 BUN/Creatinine Ratio 10.0 11/06/18 05:40 Glucose 144 mg/dL (70-105) H 11/06/18 05:40 Whole Bld Lactic Acid 0.73 mmol/L (0.60-1.99) 11/02/18 15:40 Calcium 7.7 mg/dL (8.6-10.3) L 11/06/18 05:40 Magnesium 1.7 mg/dL (1.9-2.7) L 11/06/18 05:45 Total Bilirubin 0.4 mg/dL (0.3-1.0) 11/02/18 15:40 AST 8 U/L (13-39) L 11/02/18 15:40 ALT 8 U/L (7-52) 11/02/18 15:40 Alkaline Phosphatase 63 U/L (34-104) 11/02/18 15:40 Creatine Kinase 11 U/L (30-223) L 11/02/18 15:40 Troponin I 0.01 ng/mL (0.01-0.05) 11/02/18 15:40 C-Reactive Protein 22.6 mg/dL (0.0-0.9) H 11/04/18 05:45 Total Protein 7.2 gm/dL (6.0-8.3) 11/02/18 15:40 Albumin 3.0 gm/dL (4.2-5.5) L 11/02/18 15:40 Globulin 4.2 gm/dL 11/02/18 15:40 Albumin/Globulin Ratio 0.7 (1.0-1.8) L 11/02/18 15:40 Urine Source MIDSTREAM 11/03/18 18:30 Urine Color YELLOW 11/03/18 18:30 Urine Clarity HAZY (CLEAR) 11/03/18 18:30 Urine pH 5.5 (4.6 - 8.0) 11/03/18 18:30 Ur Specific [place] 1.025 (1.005-1.030) 11/03/18 18:30 Urine Protein 30 mg/dL (NEGATIVE) H 11/03/18 18:30 Urine Glucose (UA) NEGATIVE mg/dL (NEGATIVE) 11/03/18 18:30 Urine Ketones NEGATIVE mg/dL (NEGATIVE) 11/03/18 18:30 Urine Blood NEGATIVE (NEGATIVE) 11/03/18 18:30 Urine Nitrate NEGATIVE (NEGATIVE) 11/03/18 18:30 Urine Bilirubin NEGATIVE (NEGATIVE) 11/03/18 18:30 Urine Urobilinogen 0.2 E.U./dL (0.2 - 1.0) 11/03/18 18:30 Ur Leukocyte Esterase TRACE (NEGATIVE) H 11/03/18 18:30 Urine RBC NONE SEEN /hpf (0-5) 11/03/18 18:30 Urine WBC 6-10 /hpf (0-5) 11/03/18 18:30 Ur Epithelial Cells RARE /lpf (FEW) 11/03/18 18:30 Urine Bacteria FEW /hpf (NONE SEEN) 11/03/18 18:30 Stool Occult Blood POSITIVE (NEGATIVE) H 11/05/18 12:20 Stool Leukocyte MODERATE WBC SEEN 11/04/18 16:45 - Physical Exam Vitals and I&O: Vital Signs Temp 97.3 F 11/06/18 08:00 Pulse 71 11/06/18 08:00 Resp 18 11/06/18 08:00 BP 103/66 11/06/18 08:00 Pulse Ox 97 11/06/18 08:00 Intake & Output 11/05/18 11/06/18 11/06/18 18:59 06:59 18:59 Intake Total 100 700 Balance 100 700 Weight (lbs) 80.286 kg Intake: Intake, IV Amount 100 100 Piperacillin Sodium/ 100 100 Tazobact 4.5 gm In Sodium Chloride 0.9% 100 ml @ 100 mls/hr IV Q8HR [facility] Rx #:[id number] Oral 600 Other: # Voids 3 # Bowel Movements 4 Stool Characteristics Liquid Liquid Weight Source Bedscale Active Medications: Current Medications Cholestyramine Resin (Questran) 4 gm PO 1000 [facility] Stop: 01/03/19 08:59 Last Admin: 11/05/18 10:45 Dose: 4 gm Potassium Chloride/Sodium Chloride (0.9% Ns W/20 Meq Kcl) 1,000 mls @ 75 mls/ hr IV .[id number] [facility] Stop: 01/04/19 15:08 Last Admin: 11/05/18 16:19 Dose: 75 mls/hr Magnesium Oxide (Mag-Oxide) 400 mg PO DAILY [facility] Stop: 01/05/19 08:59 Pantoprazole Sodium (Protonix) 40 mg IVP DAILY [facility] Stop: 01/02/19 08:59 Last Admin: 11/05/18 08:44 Dose: 40 mg Potassium Chloride (Klor-Con) 60 meq PO X1 [facility] Stop: 11/06/18 08:53 Vancomycin HCl (Vancomycin Oral) 250 mg PO QID [facility] Stop: 01/03/19 08:59 Last Admin: 11/05/18 20:37 Dose: 250 mg General: Alert, Cooperative HEENT: Atraumatic, PERRLA, EOMI Cardiovascular: Regular rate, Normal S1, Normal S2 Abdomen: Bowel sounds Assessment/Plan - Assessment Assessment: 1. C diff colitis 2. Diarrhea 3. History of subtotal colectomy 4. Abdominal distention -Diarrhea likely from C diff - continue with PO vanco -Added cholestyramine and continue this medication -Supportive care -Will follow
[2018-11-06] MEDS: Vancomycin HCL 250 mg /10mL UDC PO SCH ×4 (09:41→21:25)
--- NOTE | 2018-11-06 14:14 | Consultation ---
DATE OF CONSULTATION: 11/05/2018 ATTENDING PHYSICIAN: Sylvester Rondon M.D. HOME CARE ASSOCIATE: Kj Diallo M.D. REASON FOR CONSULTATION: Electrolyte imbalance and fluid management. HISTORY OF PRESENT ILLNESS: This is a 58-year-old male with past medical history of type 2 diabetes mellitus, who came in because of generalized weakness. Two weeks prior to admission, the patient developed watery diarrhea. He was prescribed antidiarrheals at that time. However, his diarrhea persisted. He denied any blood or mucus in his stool. He gradually became weaker. A few hours prior to admission, he developed cough and congestion. He also continued to have easy fatigability with worsening weakness. His diarrhea persisted. Thus, he was brought to the Emergency Room. His white count was 13 upon arrival. Chest x-ray revealed bilateral atelectasis versus infiltrates. He was started on Zosyn. Stool for C. diff turned out to be positive. His potassium level had always been low and was 3.3 upon arrival. He had potassium replacement and potassium today was 2.6. PAST MEDICAL HISTORY: 1. Type 2 diabetes mellitus. 2. Peripheral neuropathy. 3. Glaucoma. 4. Benign prostatic hypertrophy. 5. Intermittent diarrhea. 6. Bowel obstruction. 7. Anemia of chronic disease. 8. Malnutrition. PAST SURGICAL HISTORY: Status post partial colectomy. CURRENT MEDICATIONS: He is currently on cholestyramine, magnesium oxide, metronidazole, pantoprazole, vancomycin, and piperacillin. ALLERGIES: No known drug allergies. SOCIAL HISTORY: He did have a history of smoking and drinking alcoholic beverages, but had quit both of them many years ago. He used to work in construction. FAMILY HISTORY: Noncontributory to present illness. REVIEW OF SYSTEMS: Review of 12-point systems was unremarkable except for the signs and symptoms that I have mentioned in my H and P. PHYSICAL EXAMINATION: GENERAL: The patient is alert, feels a little bit stronger, coherent. VITAL SIGNS: Blood pressure is 100/74, pulse 83, and temperature 97.2 degrees. SKIN: Good turgor, warm, no rash, no jaundice appreciated. HEENT: Head normocephalic, atraumatic. Eyes: Extraocular muscles intact. Pupils equal, round, reactive to light and accommodates. Anicteric sclerae. Pale conjunctivae. Nose: Midline nasal septum. Mouth: Moist mucosa, adequate dentition. NECK: Supple, no adenopathy, no thyromegaly, no bruits. Trachea palpated in the midline. CHEST AND CARDIOVASCULAR: S1, S2. No rub, murmur nor gallop appreciated. Point of maximal impulse fifth intercostal space, left midclavicular line. No abdominal or femoral bruits appreciated. LUNGS: Equal expansion, no use of accessory muscles. No supraclavicular retractions. Decreased breath sounds, scattered rhonchi, but no rales nor wheezes or congestion appreciated. ABDOMEN: Globular, soft. Increased bowel sounds. No rebound, no muscle guarding. No pulsatile masses. No tenderness on palpation. RECTAL: The patient refused because of his persistent diarrhea. GENITOURINARY: Normal appearing male genitalia. MUSCULOSKELETAL: No effusions present in his joints with limited range of motion. EXTREMITIES: No evidence of any edema, cyanosis, nor clubbing with palpable femoral, popliteal, and dorsalis pedis pulses. BUTTOCKS: He has a circular vesiculopapular rash in his buttocks. No drainage. NEUROLOGIC: The patient is alert, verbal, motor is 5/5. Cranial nerves 2 through 12 intact. Sensory intact. LABORATORY DATA: White count 11.3, hemoglobin 8.3, hematocrit 24.6, platelets of 412, and polys 77.3%. Sodium 135, potassium 2.5, chloride 106, CO2 of 21, BUN 8, creatinine 0.6, glucose 153, calcium 7.9, magnesium 1.5. IMPRESSION: 1. Hypokalemia secondary to watery diarrhea. 2. Watery diarrhea secondary to presence of Clostridium difficile colitis. 3. Weakness with easy fatigability secondary to diarrhea along with poor oral intake. 4. Hypomagnesemia, possibly from watery diarrhea. 5. Type 2 diabetes mellitus. 6. Peripheral neuropathy. 7. Glaucoma. 8. Benign prostatic hypertrophy. 9. Bowel obstruction, status post partial colectomy 10. Anemia, acute gastrointestinal bleed on chronic disease. 11. Malnutrition. PLAN: 1. Continue with IV fluids, but add potassium. 2. Emphasize foods that are rich in potassium. 3. Increase fluid intake. 4. Maintenance Flagyl. 5. Replace magnesium. JOB# [id number]
--- NOTE | 2018-11-06 15:08 | General Progress Note ---
Subjective - Review of Systems Service Date: 11/06/18 Subjective: alert, still has diarrrhea but less Objective - Results Result Diagrams: 11/06/18 05:45 11/06/18 05:40 Recent Labs: Laboratory Last Values WBC 8.3 Th/cmm (4.8-10.8) 11/06/18 05:45 RBC 2.77 Mil/cmm (4.30-5.70) L 11/06/18 05:45 Hgb 8.0 gm/dL (12-16) L 11/06/18 05:45 Hct 23.7 % (41.0-60) L 11/06/18 05:45 MCV 85.8 fl (80-99) 11/06/18 05:45 MCH 28.8 pg (26.0-30.0) 11/06/18 05:45 MCHC Differential 33.6 pg (28.0-36.0) 11/06/18 05:45 RDW 18.9 % (11.5-20.0) 11/06/18 05:45 Plt Count 413 Th/cmm (150-400) H 11/06/18 05:45 MPV 7.5 fl 11/06/18 05:45 Add Manual Diff YES 11/02/18 15:40 Neutrophils % 72.8 % (40.0-80.0) 11/06/18 05:45 Band Neutrophils % 0 % (0-10) 11/02/18 15:40 Lymphocytes % 15.9 % (20.0-50.0) L 11/06/18 05:45 Monocytes % 6.6 % (2.0-10.0) 11/06/18 05:45 Eosinophils % 3.1 % (0.0-5.0) 11/06/18 05:45 Basophils % 1.6 % (0.0-2.0) 11/06/18 05:45 Neutrophils (Manual) 87 % (40-80) H 11/02/18 15:40 Lymphocytes 10 % (20-50) L 11/02/18 15:40 Monocytes 3 % (2-10) 11/02/18 15:40 Eosinophils 0 % (0-5) 11/02/18 15:40 Platelet Estimate INCREASED PLATELETS (NORMAL) 11/02/18 15:40 PT 11.0 SECONDS (9.5-11.5) 11/02/18 15:40 INR 1.06 (0.5-1.4) 11/02/18 15:40 PTT (Actin FS) 30.1 SECONDS (26.0-38.0) 11/02/18 15:40 Sodium 136 mEq/L (136-145) 11/06/18 05:40 Potassium 3.1 mEq/L (3.5-5.1) L 11/06/18 05:40 Chloride 108 mEq/L (98-107) H 11/06/18 05:40 Carbon Dioxide 21.1 mEq/L (21.0-31.0) 11/06/18 05:40 Anion Gap 10.0 (7.0-16.0) 11/06/18 05:40 BUN 5 mg/dL (7-25) L 11/06/18 05:40 Creatinine 0.5 mg/dL (0.7-1.3) L 11/06/18 05:40 Est GFR ( Amer) > 60.0 ml/min (>90) 11/06/18 05:40 Est GFR (Non-Af Amer) > 60.0 ml/min 11/06/18 05:40 BUN/Creatinine Ratio 10.0 11/06/18 05:40 Glucose 144 mg/dL (70-105) H 11/06/18 05:40 Whole Bld Lactic Acid 0.73 mmol/L (0.60-1.99) 11/02/18 15:40 Calcium 7.7 mg/dL (8.6-10.3) L 11/06/18 05:40 Magnesium 1.7 mg/dL (1.9-2.7) L 11/06/18 05:45 Total Bilirubin 0.4 mg/dL (0.3-1.0) 11/02/18 15:40 AST 8 U/L (13-39) L 11/02/18 15:40 ALT 8 U/L (7-52) 11/02/18 15:40 Alkaline Phosphatase 63 U/L (34-104) 11/02/18 15:40 Creatine Kinase 11 U/L (30-223) L 11/02/18 15:40 Troponin I 0.01 ng/mL (0.01-0.05) 11/02/18 15:40 C-Reactive Protein 22.6 mg/dL (0.0-0.9) H 11/04/18 05:45 Total Protein 7.2 gm/dL (6.0-8.3) 11/02/18 15:40 Albumin 3.0 gm/dL (4.2-5.5) L 11/02/18 15:40 Globulin 4.2 gm/dL 11/02/18 15:40 Albumin/Globulin Ratio 0.7 (1.0-1.8) L 11/02/18 15:40 Urine Source MIDSTREAM 11/03/18 18:30 Urine Color YELLOW 11/03/18 18:30 Urine Clarity HAZY (CLEAR) 11/03/18 18:30 Urine pH 5.5 (4.6 - 8.0) 11/03/18 18:30 Ur Specific [place] 1.025 (1.005-1.030) 11/03/18 18:30 Urine Protein 30 mg/dL (NEGATIVE) H 11/03/18 18:30 Urine Glucose (UA) NEGATIVE mg/dL (NEGATIVE) 11/03/18 18:30 Urine Ketones NEGATIVE mg/dL (NEGATIVE) 11/03/18 18:30 Urine Blood NEGATIVE (NEGATIVE) 11/03/18 18:30 Urine Nitrate NEGATIVE (NEGATIVE) 11/03/18 18:30 Urine Bilirubin NEGATIVE (NEGATIVE) 11/03/18 18:30 Urine Urobilinogen 0.2 E.U./dL (0.2 - 1.0) 11/03/18 18:30 Ur Leukocyte Esterase TRACE (NEGATIVE) H 11/03/18 18:30 Urine RBC NONE SEEN /hpf (0-5) 11/03/18 18:30 Urine WBC 6-10 /hpf (0-5) 11/03/18 18:30 Ur Epithelial Cells RARE /lpf (FEW) 11/03/18 18:30 Urine Bacteria FEW /hpf (NONE SEEN) 11/03/18 18:30 Stool Occult Blood POSITIVE (NEGATIVE) H 11/05/18 12:20 Stool Leukocyte MODERATE WBC SEEN 11/04/18 16:45 - Physical Exam Vitals and I&O: Vital Signs Temp 97.5 F 11/06/18 11:49 Pulse 76 11/06/18 11:49 Resp 18 11/06/18 11:49 BP 107/71 11/06/18 11:49 Pulse Ox 98 11/06/18 11:49 Intake & Output 11/05/18 11/06/18 11/06/18 18:59 06:59 18:59 Intake Total 100 700 Balance 100 700 Weight (lbs) 80.286 kg Intake: Intake, IV Amount 100 100 Piperacillin Sodium/ 100 100 Tazobact 4.5 gm In Sodium Chloride 0.9% 100 ml @ 100 mls/hr IV Q8HR [facility] Rx #:[id number] Oral 600 Other: # Voids 3 # Bowel Movements 4 Stool Characteristics Liquid Liquid Liquid Weight Source Bedscale Active Medications: Current Medications Cholestyramine Resin (Questran) 4 gm PO 1000 [facility] Stop: 01/03/19 08:59 Last Admin: 11/06/18 09:41 Dose: 4 gm Potassium Chloride/Sodium Chloride (0.9% Ns W/20 Meq Kcl) 1,000 mls @ 75 mls/ hr IV .[id number] [facility] Stop: 01/04/19 15:08 Last Admin: 11/05/18 16:19 Dose: 75 mls/hr Magnesium Oxide (Mag-Oxide) 400 mg PO DAILY ABEL Stop: 01/05/19 08:59 Last Admin: 11/06/18 09:41 Dose: 400 mg Pantoprazole Sodium (Protonix) 40 mg IVP DAILY [facility] Stop: 01/02/19 08:59 Last Admin: 11/06/18 09:41 Dose: 40 mg Vancomycin HCl (Vancomycin Oral) 250 mg PO QID [facility] Stop: 01/03/19 08:59 Last Admin: 11/06/18 13:43 Dose: 250 mg General: Alert, Cooperative HEENT: Atraumatic, PERRLA, EOMI, Mucous membr. moist/pink Neck: Supple, +2 carotid pulse wo bruit Cardiovascular: Regular rate, Normal S1, Normal S2 Lungs: Clear to auscultation Abdomen: Bowel sounds, Soft Extremities: no Edema Neurological: Sensation intact Skin: no Rash Psych/Mental Status: Mood NL Assessment/Plan - Assessment Assessment: Hypokalemia Watery diarrhea 2/2 C. diff colitis Hypomagnesemia 2/2 diarrhea T2DM Anemia acute GI bleed on CD - Plan Plan: Lab - Result Diagrams 11/06/18 05:45 11/06/18 05:40 Current Medications Cholestyramine Resin (Questran) 4 gm PO 1000 [facility] Stop: 01/03/19 08:59 Last Admin: 11/06/18 09:41 Dose: 4 gm Potassium Chloride/Sodium Chloride (0.9% Ns W/20 Meq Kcl) 1,000 mls @ 75 mls/ hr IV .[id number] [facility] Stop: 01/04/19 15:08 Last Admin: 11/05/18 16:19 Dose: 75 mls/hr Magnesium Oxide (Mag-Oxide) 400 mg PO DAILY ABEL Stop: 01/05/19 08:59 Last Admin: 11/06/18 09:41 Dose: 400 mg Pantoprazole Sodium (Protonix) 40 mg IVP DAILY [facility] Stop: 01/02/19 08:59 Last Admin: 11/06/18 09:41 Dose: 40 mg Vancomycin HCl (Vancomycin Oral) 250 mg PO QID [facility] Stop: 01/03/19 08:59 Last Admin: 11/06/18 13:43 Dose: 250 mg K still low @ 3.1 as well as Mg 1.7 He still has watery diarrhea but less replace K, Mg on Vanco po Nutritional Asmnt/Malnutr-PDOC - Dietary Evaluation Malnutrition Findings (Please click <Entered> for more info): Nutritional Asmnt/Malnutrition Start: 11/03/18 16: 17 Text: Status: Complete Freq: Protocol: Document 11/03/18 16:21 RUSS (Rec: 11/03/18 16:28 [email or web address]) Nutritional Asmnt/Malnutrition Patient General Information Nutritional Screening High Risk Consult Diagnosis PNEUMONIA, SEPSIS Pertinent Medical Hx/Surgical Hx DEMENTIA, HTN Subjective Information IA, CONSULT: BLOOD SUGAR 187 PT DOWNGRADED TO MODERATE RISK HE IS EATING, WILL ASSESS/ MONITOR NUTRITION RELATED LABS AND PO INTAKE. PT IS A 58 YEAR OLD MALE ADMITTED ON 11/02 C/O FEVER, COUGH, CONGESTION, AND WEAKNESS X3 DAYS. PT ATE 100% OF SNACK PROVIDED. HT: 61 WT: 177 LB (80.45 KG) BMI: 23.35 (NORMAL) GI: WNL, SOFT, ROUND, NON- TENDER BM: 11/03 X3 (DIARRHEA) I/O: 872/NOT NOTED SKIN: WNL, WARM, DRY, ELASTIC, INTACT TRISTON: 17 DIET ORDER: CCHO 45GM, ELA, HIGH PROTEIN ESTIMATED ENERGY NEEDS: ( GERIATRIC, CBW) 7720-4382 KCALS (25-30 KCALS/ KG) 80-97 G PRO (1.0-1.2 G/KG) 0560-9782 ML (25-30 ML/KG) Current Diet Order/ Nutrition Support CCHO 45GM, ELA, HIGH PROTEIN Pertinent Medications PROTONIX, NACL 0.9% Pertinent Labs 11/02: HGB/HCT: 8.8/27.0, POTASS 3.3, BUN/CR 17/0.6, GLUCOSE 187, CA 8.4, AST 8, ALB 3.0 Nutritional Hx/Data Height 1.85 m Height (Calculated Centimeters) 185.4 Current Weight (lbs) 80.286 kg Weight (Calculated Kilograms) 80.3 Weight (Calculated Grams) 72179.8 [place] Body Weight 184 LB (83.64 KG) % [place] Body Weight 96 Body Mass Index (BMI) 23.3 Weight Status Approriate GI Symptoms GI Symptoms None Last BM 11/03 X3 (DIARRHEA) Skin Integrity/Comment: WNL, WARM, DRY, ELASTIC, INTACT TRISTON: 17 Estimated Nutritional Goals BEE in Kcals: Using Current wt Calories/Kcals/Kg 25-30 Kcals Calculated 1361-0345 Protein: Using Current wt Protein g/k.0-1.2 Protein Calculated 80-97 Fluid: ml 7883-7649 ML (25-30 ML/KG) Nutritional Problem 1. Problem Problem ALTERED NUTRITION RELATED LABS Etiology R/T PATHOPHYSIOLOGICAL CAUSES Signs/Symptoms: AEB POTASS 3.3, GLUCOSE 187, CA 8.4 Malnutrition Related to Morbid Obesity Malnutrition related to morbid obesity No Intervention/Recommendation Comments CONTINUE CCHO 45GM, ELA, HIGH PROTEIN DIET ORDERED. Expected Outcomes/Goals Expected Outcomes/Goals 1. PO INTAKE TO MEET 75% OF NUTRITIONAL NEEDS. 2. MONITOR NPO STATUS, WT, NUTRITION RELATED LABS AND SKIN INTEGRITY. 3. NUTRITION RELATED LABS TO TREND WNL. 4. F/U HIGH RISK IN 2-3 DAYS, 11/05-11/06
[2018-11-07 05:05] LABS: BASOPHILE ABSOLUTE 0.5 Th/cumm (0-0.2); EOSINOPHILE ABSOLUTE 0.1 Th/cmm (0.1-0.4); HEMATOCRIT 25.7 % (41.0-60); HEMOGLOBIN 8.5 gm/dL (12-16); LYMPHOCYTE ABSOLUTE 1.8 Th/cmm (1.5-3.0); MEAN CELL VOLUME 87.3 fl (80-99); MEAN CORPUSCULAR HEMOGLOBIN 28.9 pg (26.0-30.0); MEAN CORPUSCULAR HGB CONC 33.1 pg (28.0-36.0); MONOCYTE ABSOLUTE 0.4 Th/cmm (0.3-1.0); PLATELET COUNT 391 Th/cmm (150-400); RED BLOOD COUNT 2.95 Mil/cmm (4.30-5.70); RED CELL DISTRIBUTION WIDTH 19.7 % (11.5-20.0); WHITE BLOOD COUNT 8.8 Th/cmm (4.8-10.8)
[2018-11-07 05:13] LABS: ALB/GLOB RATIO 0.7 (1.0-1.8); ALBUMIN 2.3 gm/dL (4.2-5.5); ALKALINE PHOSPHATASE 42 U/L (34-104); ANION GAP 8.7 (7.0-16.0); BILIRUBIN,TOTAL 0.2 mg/dL (0.3-1.0); BUN - UREA NITROGEN 3 mg/dL (7-25); CALCIUM SERUM 7.8 mg/dL (8.6-10.3); CARBON DIOXIDE 21.6 mEq/L (21.0-31.0); CHLORIDE 109 mEq/L (98-107); CREATININE - SERUM 0.5 mg/dL (0.7-1.3); GFR AFRICAN-AMERICAN > 60.0 ml/min (>90); GFR NON AFRICAN-AMERICAN > 60.0 ml/min; GLUCOSE 149 mg/dL (70-105); POTASSIUM SERUM 3.3 mEq/L (3.5-5.1); SGOT 7 U/L (13-39); SGPT/ALT 4 U/L (7-52); SODIUM SERUM 136 mEq/L (136-145); TOTAL PROTEIN,SERUM 5.7 gm/dL (6.0-8.3)
[2018-11-07 06:17] LABS: MAGNESIUM 1.6 mg/dL (1.9-2.7)
[2018-11-07 07:13] LABS: BAND NEUTROPHILE 3 % (0-10); EOSINOPHIL 2 % (0-5); LYMPHOCYTE 21 % (20-50); MONOCYTE 5 % (2-10); NEUTROPHILS 69 % (40-80)
[2018-11-07 07:14] LABS: BASOPHIL 0 % (0-3)
[2018-11-07] MEDS: Vancomycin HCL 250 mg /10mL UDC PO SCH ×4 (09:24→20:34)
[2018-11-07] MEDS ORDERED: Potassium Chloride 20 mEq ER Tab PO ONE (12:09)
[2018-11-07] MEDS ORDERED: Mag Sulfate 2gm/50mL Premix 2 GM/50 ML BAG IV ONE (12:30)
--- NOTE | 2018-11-07 14:14 | GI Progress Note ---
Subjective - Review of Systems Subjective: NO EVENTS GI OBJECTIVE - Results Result Diagrams: 11/07/18 04:10 11/07/18 04:10 Recent Labs: Laboratory Last Values WBC 8.8 Th/cmm (4.8-10.8) 11/07/18 04:10 RBC 2.95 Mil/cmm (4.30-5.70) L 11/07/18 04:10 Hgb 8.5 gm/dL (12-16) L 11/07/18 04:10 Hct 25.7 % (41.0-60) L 11/07/18 04:10 MCV 87.3 fl (80-99) 11/07/18 04:10 MCH 28.9 pg (26.0-30.0) 11/07/18 04:10 MCHC Differential 33.1 pg (28.0-36.0) 11/07/18 04:10 RDW 19.7 % (11.5-20.0) 11/07/18 04:10 Plt Count 391 Th/cmm (150-400) 11/07/18 04:10 MPV 7.9 fl 11/07/18 04:10 Add Manual Diff YES 11/07/18 04:10 Neutrophils % 72.8 % (40.0-80.0) 11/06/18 05:45 Band Neutrophils % 3 % (0-10) 11/07/18 04:10 Lymphocytes % 15.9 % (20.0-50.0) L 11/06/18 05:45 Monocytes % 6.6 % (2.0-10.0) 11/06/18 05:45 Eosinophils % 3.1 % (0.0-5.0) 11/06/18 05:45 Basophils % 1.6 % (0.0-2.0) 11/06/18 05:45 Neutrophils (Manual) 69 % (40-80) 11/07/18 04:10 Lymphocytes 21 % (20-50) 11/07/18 04:10 Monocytes 5 % (2-10) 11/07/18 04:10 Eosinophils 2 % (0-5) 11/07/18 04:10 Basophils 0 % (0-3) 11/07/18 04:10 Platelet Estimate INCREASED PLATELETS (NORMAL) 11/02/18 15:40 PT 11.0 SECONDS (9.5-11.5) 11/02/18 15:40 INR 1.06 (0.5-1.4) 11/02/18 15:40 PTT (Actin FS) 30.1 SECONDS (26.0-38.0) 11/02/18 15:40 Sodium 136 mEq/L (136-145) 11/07/18 04:10 Potassium 3.3 mEq/L (3.5-5.1) L 11/07/18 04:10 Chloride 109 mEq/L (98-107) H 11/07/18 04:10 Carbon Dioxide 21.6 mEq/L (21.0-31.0) 11/07/18 04:10 Anion Gap 8.7 (7.0-16.0) 11/07/18 04:10 BUN 3 mg/dL (7-25) L 11/07/18 04:10 Creatinine 0.5 mg/dL (0.7-1.3) L 11/07/18 04:10 Est GFR ( Amer) > 60.0 ml/min (>90) 11/07/18 04:10 Est GFR (Non-Af Amer) > 60.0 ml/min 11/07/18 04:10 BUN/Creatinine Ratio 6.0 11/07/18 04:10 Glucose 149 mg/dL (70-105) H 11/07/18 04:10 Whole Bld Lactic Acid 0.73 mmol/L (0.60-1.99) 11/02/18 15:40 Calcium 7.8 mg/dL (8.6-10.3) L 11/07/18 04:10 Magnesium 1.6 mg/dL (1.9-2.7) L 11/07/18 04:10 Total Bilirubin 0.2 mg/dL (0.3-1.0) L 11/07/18 04:10 AST 7 U/L (13-39) L 11/07/18 04:10 ALT 4 U/L (7-52) L 11/07/18 04:10 Alkaline Phosphatase 42 U/L (34-104) 11/07/18 04:10 Creatine Kinase 11 U/L (30-223) L 11/02/18 15:40 Troponin I 0.01 ng/mL (0.01-0.05) 11/02/18 15:40 C-Reactive Protein 22.6 mg/dL (0.0-0.9) H 11/04/18 05:45 Total Protein 5.7 gm/dL (6.0-8.3) L 11/07/18 04:10 Albumin 2.3 gm/dL (4.2-5.5) L 11/07/18 04:10 Globulin 3.4 gm/dL 11/07/18 04:10 Albumin/Globulin Ratio 0.7 (1.0-1.8) L 11/07/18 04:10 Urine Source MIDSTREAM 11/03/18 18:30 Urine Color YELLOW 11/03/18 18:30 Urine Clarity HAZY (CLEAR) 11/03/18 18:30 Urine pH 5.5 (4.6 - 8.0) 11/03/18 18:30 Ur Specific [place] 1.025 (1.005-1.030) 11/03/18 18:30 Urine Protein 30 mg/dL (NEGATIVE) H 11/03/18 18:30 Urine Glucose (UA) NEGATIVE mg/dL (NEGATIVE) 11/03/18 18:30 Urine Ketones NEGATIVE mg/dL (NEGATIVE) 11/03/18 18:30 Urine Blood NEGATIVE (NEGATIVE) 11/03/18 18:30 Urine Nitrate NEGATIVE (NEGATIVE) 11/03/18 18:30 Urine Bilirubin NEGATIVE (NEGATIVE) 11/03/18 18:30 Urine Urobilinogen 0.2 E.U./dL (0.2 - 1.0) 11/03/18 18:30 Ur Leukocyte Esterase TRACE (NEGATIVE) H 11/03/18 18:30 Urine RBC NONE SEEN /hpf (0-5) 11/03/18 18:30 Urine WBC 6-10 /hpf (0-5) 11/03/18 18:30 Ur Epithelial Cells RARE /lpf (FEW) 11/03/18 18:30 Urine Bacteria FEW /hpf (NONE SEEN) 11/03/18 18:30 Stool Occult Blood POSITIVE (NEGATIVE) H 11/05/18 12:20 Stool Leukocyte MODERATE WBC SEEN 11/04/18 16:45 - Physical Exam Vitals and I&O: Vital Signs Temp 98.4 F 11/07/18 11:00 Pulse 78 11/07/18 11:00 Resp 18 11/07/18 11:00 BP 104/68 07/22/19 11:00 Pulse Ox 100 11/07/18 11:00 Intake & Output 11/06/18 11/07/18 11/07/18 18:59 06:59 18:59 Intake Total 1800 Balance 1800 Weight (lbs) 80.286 kg Intake: Oral 1800 Other: # Voids 3 # Bowel Movements 2 Stool Characteristics Liquid Soft Liquid Brown Weight Source Bedscale Active Medications: Current Medications Cholestyramine Resin (Questran) 4 gm PO 1000 ABEL Stop: 01/03/19 08:59 Last Admin: 11/07/18 09:24 Dose: 4 gm Gabapentin (Neurontin) 300 mg PO DAILY ABEL Stop: 01/05/19 15:29 Last Admin: 11/07/18 09:23 Dose: 300 mg Potassium Chloride/Sodium Chloride (0.9% Ns W/20 Meq Kcl) 1,000 mls @ 75 mls/ hr IV .[id number] ABEL Stop: 01/04/19 15:08 Last Admin: 11/05/18 16:19 Dose: 75 mls/hr Magnesium Sulfate (Magnesium Sulfate Premix) 2 gm in 50 mls @ 25 mls/hr IV X1 ONE Stop: 11/07/18 14:29 Last Admin: 11/07/18 13:07 Dose: 25 mls/hr Magnesium Oxide (Mag-Oxide) 400 mg PO DAILY ABEL Stop: 01/05/19 08:59 Last Admin: 11/07/18 09:23 Dose: 400 mg Pantoprazole Sodium (Protonix) 40 mg IVP DAILY ABEL Stop: 01/02/19 08:59 Last Admin: 11/07/18 09:24 Dose: 40 mg Vancomycin HCl (Vancomycin Oral) 250 mg PO QID ABEL Stop: 01/03/19 08:59 Last Admin: 11/07/18 13:07 Dose: 250 mg Assessment/Plan - Assessment Assessment: 58 MALE WITH DIARRHEA DUE TO CDIFF WITH HX OF RECENT PARTIAL COLON RESECTION SEEMS TO BE IMPROVED ALSO HAS DILATED GB ON CT OF UNCLEAR ETIOLOGY 1.CHECK HIDA 2.MAY NEED TRIPHASIC CT TO LOOK AT THE GB 3.CONT ABX
--- NOTE | 2018-11-07 16:29 | General Progress Note ---
Subjective - Review of Systems Service Date: 11/07/18 Subjective: alert, still has diarrrhea but less Objective - Results Result Diagrams: 11/07/18 04:10 11/07/18 04:10 Recent Labs: Laboratory Last Values WBC 8.8 Th/cmm (4.8-10.8) 11/07/18 04:10 RBC 2.95 Mil/cmm (4.30-5.70) L 11/07/18 04:10 Hgb 8.5 gm/dL (12-16) L 11/07/18 04:10 Hct 25.7 % (41.0-60) L 11/07/18 04:10 MCV 87.3 fl (80-99) 11/07/18 04:10 MCH 28.9 pg (26.0-30.0) 11/07/18 04:10 MCHC Differential 33.1 pg (28.0-36.0) 11/07/18 04:10 RDW 19.7 % (11.5-20.0) 11/07/18 04:10 Plt Count 391 Th/cmm (150-400) 11/07/18 04:10 MPV 7.9 fl 11/07/18 04:10 Add Manual Diff YES 11/07/18 04:10 Neutrophils % 72.8 % (40.0-80.0) 11/06/18 05:45 Band Neutrophils % 3 % (0-10) 11/07/18 04:10 Lymphocytes % 15.9 % (20.0-50.0) L 11/06/18 05:45 Monocytes % 6.6 % (2.0-10.0) 11/06/18 05:45 Eosinophils % 3.1 % (0.0-5.0) 11/06/18 05:45 Basophils % 1.6 % (0.0-2.0) 11/06/18 05:45 Neutrophils (Manual) 69 % (40-80) 11/07/18 04:10 Lymphocytes 21 % (20-50) 11/07/18 04:10 Monocytes 5 % (2-10) 11/07/18 04:10 Eosinophils 2 % (0-5) 11/07/18 04:10 Basophils 0 % (0-3) 11/07/18 04:10 Platelet Estimate INCREASED PLATELETS (NORMAL) 11/02/18 15:40 PT 11.0 SECONDS (9.5-11.5) 11/02/18 15:40 INR 1.06 (0.5-1.4) 11/02/18 15:40 PTT (Actin FS) 30.1 SECONDS (26.0-38.0) 11/02/18 15:40 Sodium 136 mEq/L (136-145) 11/07/18 04:10 Potassium 3.3 mEq/L (3.5-5.1) L 11/07/18 04:10 Chloride 109 mEq/L (98-107) H 11/07/18 04:10 Carbon Dioxide 21.6 mEq/L (21.0-31.0) 11/07/18 04:10 Anion Gap 8.7 (7.0-16.0) 11/07/18 04:10 BUN 3 mg/dL (7-25) L 11/07/18 04:10 Creatinine 0.5 mg/dL (0.7-1.3) L 11/07/18 04:10 Est GFR ( Amer) > 60.0 ml/min (>90) 11/07/18 04:10 Est GFR (Non-Af Amer) > 60.0 ml/min 11/07/18 04:10 BUN/Creatinine Ratio 6.0 11/07/18 04:10 Glucose 149 mg/dL (70-105) H 11/07/18 04:10 Whole Bld Lactic Acid 0.73 mmol/L (0.60-1.99) 11/02/18 15:40 Calcium 7.8 mg/dL (8.6-10.3) L 11/07/18 04:10 Magnesium 1.6 mg/dL (1.9-2.7) L 11/07/18 04:10 Total Bilirubin 0.2 mg/dL (0.3-1.0) L 11/07/18 04:10 AST 7 U/L (13-39) L 11/07/18 04:10 ALT 4 U/L (7-52) L 11/07/18 04:10 Alkaline Phosphatase 42 U/L (34-104) 11/07/18 04:10 Creatine Kinase 11 U/L (30-223) L 11/02/18 15:40 Troponin I 0.01 ng/mL (0.01-0.05) 11/02/18 15:40 C-Reactive Protein 22.6 mg/dL (0.0-0.9) H 11/04/18 05:45 Total Protein 5.7 gm/dL (6.0-8.3) L 11/07/18 04:10 Albumin 2.3 gm/dL (4.2-5.5) L 11/07/18 04:10 Globulin 3.4 gm/dL 11/07/18 04:10 Albumin/Globulin Ratio 0.7 (1.0-1.8) L 11/07/18 04:10 Urine Source MIDSTREAM 11/03/18 18:30 Urine Color YELLOW 11/03/18 18:30 Urine Clarity HAZY (CLEAR) 11/03/18 18:30 Urine pH 5.5 (4.6 - 8.0) 11/03/18 18:30 Ur Specific [place] 1.025 (1.005-1.030) 11/03/18 18:30 Urine Protein 30 mg/dL (NEGATIVE) H 11/03/18 18:30 Urine Glucose (UA) NEGATIVE mg/dL (NEGATIVE) 11/03/18 18:30 Urine Ketones NEGATIVE mg/dL (NEGATIVE) 11/03/18 18:30 Urine Blood NEGATIVE (NEGATIVE) 11/03/18 18:30 Urine Nitrate NEGATIVE (NEGATIVE) 11/03/18 18:30 Urine Bilirubin NEGATIVE (NEGATIVE) 11/03/18 18:30 Urine Urobilinogen 0.2 E.U./dL (0.2 - 1.0) 11/03/18 18:30 Ur Leukocyte Esterase TRACE (NEGATIVE) H 11/03/18 18:30 Urine RBC NONE SEEN /hpf (0-5) 11/03/18 18:30 Urine WBC 6-10 /hpf (0-5) 11/03/18 18:30 Ur Epithelial Cells RARE /lpf (FEW) 11/03/18 18:30 Urine Bacteria FEW /hpf (NONE SEEN) 11/03/18 18:30 Stool Occult Blood POSITIVE (NEGATIVE) H 11/05/18 12:20 Stool Leukocyte MODERATE WBC SEEN 11/04/18 16:45 - Physical Exam Vitals and I&O: Vital Signs Temp 98.4 F 11/07/18 16:04 Pulse 78 11/07/18 16:04 Resp 18 11/07/18 16:04 BP 104/68 11/07/18 16:04 Pulse Ox 100 11/07/18 16:04 Intake & Output 11/06/18 11/07/18 11/07/18 18:59 06:59 18:59 Intake Total 1800 Balance 1800 Weight (lbs) 80.286 kg Intake: Oral 1800 Other: # Voids 3 # Bowel Movements 2 Stool Characteristics Liquid Soft Liquid Brown Weight Source Bedscale Active Medications: Current Medications Cholestyramine Resin (Questran) 4 gm PO 1000 ABEL Stop: 01/03/19 08:59 Last Admin: 11/07/18 09:24 Dose: 4 gm Gabapentin (Neurontin) 300 mg PO DAILY [facility]EL Stop: 01/05/19 15:29 Last Admin: 11/07/18 09:23 Dose: 300 mg Potassium Chloride/Sodium Chloride (0.9% Ns W/20 Meq Kcl) 1,000 mls @ 75 mls/ hr IV .[id number] ABEL Stop: 01/04/19 15:08 Last Admin: 11/05/18 16:19 Dose: 75 mls/hr Magnesium Oxide (Mag-Oxide) 400 mg PO DAILY ABEL Stop: 01/05/19 08:59 Last Admin: 11/07/18 09:23 Dose: 400 mg Pantoprazole Sodium (Protonix) 40 mg IVP DAILY ABEL Stop: 01/02/19 08:59 Last Admin: 11/07/18 09:24 Dose: 40 mg Vancomycin HCl (Vancomycin Oral) 250 mg PO QID [facility]EL Stop: 01/03/19 08:59 Last Admin: 11/07/18 13:07 Dose: 250 mg General: Alert, Cooperative, Mild distress HEENT: Atraumatic, PERRLA, EOMI, Mucous membr. moist/pink Neck: Supple, +2 carotid pulse wo bruit Cardiovascular: Regular rate, Normal S1, Normal S2 Lungs: Clear to auscultation Abdomen: Bowel sounds, Soft Extremities: no Edema Neurological: Sensation intact Skin: no Rash Psych/Mental Status: Mood NL Assessment/Plan - Assessment Assessment: Hypokalemia Watery diarrhea 2/2 C. diff colitis Hypomagnesemia 2/2 diarrhea T2DM Anemia acute GI bleed on CD - Plan Plan: Lab - Result Diagrams 11/06/18 05:45 11/06/18 05:40 Current Medications Cholestyramine Resin (Questran) 4 gm PO 1000 ABEL Stop: 01/03/19 08:59 Last Admin: 11/06/18 09:41 Dose: 4 gm Potassium Chloride/Sodium Chloride (0.9% Ns W/20 Meq Kcl) 1,000 mls @ 75 mls/ hr IV .[id number] [facility] Stop: 01/04/19 15:08 Last Admin: 11/05/18 16:19 Dose: 75 mls/hr Magnesium Oxide (Mag-Oxide) 400 mg PO DAILY ABEL Stop: 01/05/19 08:59 Last Admin: 11/06/18 09:41 Dose: 400 mg Pantoprazole Sodium (Protonix) 40 mg IVP DAILY ABEL Stop: 01/02/19 08:59 Last Admin: 11/06/18 09:41 Dose: 40 mg Vancomycin HCl (Vancomycin Oral) 250 mg PO QID ABEL Stop: 01/03/19 08:59 Last Admin: 11/06/18 13:43 Dose: 250 mg Lab - Result Diagrams 11/07/18 04:10 11/07/18 04:10 K still low @ 3.3 as well as Mg 1.6 He still has watery diarrhea but less replace K, Mg on Vanco po Nutritional Asmnt/Malnutr-PDOC - Dietary Evaluation Malnutrition Findings (Please click <Entered> for more info): Nutritional Asmnt/Malnutrition Start: 11/03/18 16: 17 Text: Status: Complete Freq: Protocol: Document 11/03/18 16:21 RUSS (Rec: 11/03/18 16:28 [email or web address] [id number]) Nutritional Asmnt/Malnutrition Patient General Information Nutritional Screening High Risk Consult Diagnosis PNEUMONIA, SEPSIS Pertinent Medical Hx/Surgical Hx DEMENTIA, HTN Subjective Information IA, CONSULT: BLOOD SUGAR 187 PT DOWNGRADED TO MODERATE RISK HE IS EATING, WILL ASSESS/ MONITOR NUTRITION RELATED LABS AND PO INTAKE. PT IS A 58 YEAR OLD MALE ADMITTED ON 11/02 C/O FEVER, COUGH, CONGESTION, AND WEAKNESS X3 DAYS. PT ATE 100% OF SNACK PROVIDED. HT: 61 WT: 177 LB (80.45 KG) BMI: 23.35 (NORMAL) GI: WNL, SOFT, ROUND, NON- TENDER BM: 11/03 X3 (DIARRHEA) I/O: 872/NOT NOTED SKIN: WNL, WARM, DRY, ELASTIC, INTACT TRISTON: 17 DIET ORDER: CCHO 45GM, ELA, HIGH PROTEIN ESTIMATED ENERGY NEEDS: ( GERIATRIC, CBW) 9744-3546 KCALS (25-30 KCALS/ KG) 80-97 G PRO (1.0-1.2 G/KG) 2390-6992 ML (25-30 ML/KG) Current Diet Order/ Nutrition Support CCHO 45GM, ELA, HIGH PROTEIN Pertinent Medications PROTONIX, NACL 0.9% Pertinent Labs 11/02: HGB/HCT: 8.8/27.0, POTASS 3.3, BUN/CR 17/0.6, GLUCOSE 187, CA 8.4, AST 8, ALB 3.0 Nutritional Hx/Data Height 1.85 m Height (Calculated Centimeters) 185.4 Current Weight (lbs) 80.286 kg Weight (Calculated Kilograms) 80.3 Weight (Calculated Grams) 91469.8 [place] Body Weight 184 LB (83.64 KG) % [place] Body Weight 96 Body Mass Index (BMI) 23.3 Weight Status Approriate GI Symptoms GI Symptoms None Last BM 11/03 X3 (DIARRHEA) Skin Integrity/Comment: WNL, WARM, DRY, ELASTIC, INTACT TRISTON: 17 Estimated Nutritional Goals BEE in Kcals: Using Current wt Calories/Kcals/Kg 25-30 Kcals Calculated 2456-5248 Protein: Using Current wt Protein g/k.0-1.2 Protein Calculated 80-97 Fluid: ml 7238-3856 ML (25-30 ML/KG) Nutritional Problem 1. Problem Problem ALTERED NUTRITION RELATED LABS Etiology R/T PATHOPHYSIOLOGICAL CAUSES Signs/Symptoms: AEB POTASS 3.3, GLUCOSE 187, CA 8.4 Malnutrition Related to Morbid Obesity Malnutrition related to morbid obesity No Intervention/Recommendation Comments CONTINUE CCHO 45GM, ELA, HIGH PROTEIN DIET ORDERED. Expected Outcomes/Goals Expected Outcomes/Goals 1. PO INTAKE TO MEET 75% OF NUTRITIONAL NEEDS. 2. MONITOR NPO STATUS, WT, NUTRITION RELATED LABS AND SKIN INTEGRITY. 3. NUTRITION RELATED LABS TO TREND WNL. 4. F/U HIGH RISK IN 2-3 DAYS, 11/05-11/06
[2018-11-07] MEDS: 0.9% NS w/20 mEq KCL 1,000 ML IV SCH ×3 (17:50→23:50)
[2018-11-08] MEDS: 0.9% NS w/20 mEq KCL 1,000 ML IV SCH ×2 (00:50→10:25)
--- NOTE | 2018-11-08 02:27 | Infectious Disease Prog Note ---
Infectious Disease Subjective - Review of Systems Service Date: 11/07/18 Subjective: diarrhea improved. Infectious Disease Objective - Results Result Diagrams: 11/07/18 04:10 11/07/18 04:10 Recent Labs: Laboratory Last Values WBC 8.8 Th/cmm (4.8-10.8) 11/07/18 04:10 RBC 2.95 Mil/cmm (4.30-5.70) L 11/07/18 04:10 Hgb 8.5 gm/dL (12-16) L 11/07/18 04:10 Hct 25.7 % (41.0-60) L 11/07/18 04:10 MCV 87.3 fl (80-99) 11/07/18 04:10 MCH 28.9 pg (26.0-30.0) 11/07/18 04:10 MCHC Differential 33.1 pg (28.0-36.0) 11/07/18 04:10 RDW 19.7 % (11.5-20.0) 11/07/18 04:10 Plt Count 391 Th/cmm (150-400) 11/07/18 04:10 MPV 7.9 fl 11/07/18 04:10 Add Manual Diff YES 11/07/18 04:10 Neutrophils % 72.8 % (40.0-80.0) 11/06/18 05:45 Band Neutrophils % 3 % (0-10) 11/07/18 04:10 Lymphocytes % 15.9 % (20.0-50.0) L 11/06/18 05:45 Monocytes % 6.6 % (2.0-10.0) 11/06/18 05:45 Eosinophils % 3.1 % (0.0-5.0) 11/06/18 05:45 Basophils % 1.6 % (0.0-2.0) 11/06/18 05:45 Neutrophils (Manual) 69 % (40-80) 11/07/18 04:10 Lymphocytes 21 % (20-50) 11/07/18 04:10 Monocytes 5 % (2-10) 11/07/18 04:10 Eosinophils 2 % (0-5) 11/07/18 04:10 Basophils 0 % (0-3) 11/07/18 04:10 Platelet Estimate INCREASED PLATELETS (NORMAL) 11/02/18 15:40 PT 11.0 SECONDS (9.5-11.5) 11/02/18 15:40 INR 1.06 (0.5-1.4) 11/02/18 15:40 PTT (Actin FS) 30.1 SECONDS (26.0-38.0) 11/02/18 15:40 Sodium 136 mEq/L (136-145) 11/07/18 04:10 Potassium 3.3 mEq/L (3.5-5.1) L 11/07/18 04:10 Chloride 109 mEq/L (98-107) H 11/07/18 04:10 Carbon Dioxide 21.6 mEq/L (21.0-31.0) 11/07/18 04:10 Anion Gap 8.7 (7.0-16.0) 11/07/18 04:10 BUN 3 mg/dL (7-25) L 11/07/18 04:10 Creatinine 0.5 mg/dL (0.7-1.3) L 11/07/18 04:10 Est GFR ( Amer) > 60.0 ml/min (>90) 11/07/18 04:10 Est GFR (Non-Af Amer) > 60.0 ml/min 11/07/18 04:10 BUN/Creatinine Ratio 6.0 11/07/18 04:10 Glucose 149 mg/dL (70-105) H 11/07/18 04:10 Whole Bld Lactic Acid 0.73 mmol/L (0.60-1.99) 11/02/18 15:40 Calcium 7.8 mg/dL (8.6-10.3) L 11/07/18 04:10 Magnesium 1.6 mg/dL (1.9-2.7) L 11/07/18 04:10 Total Bilirubin 0.2 mg/dL (0.3-1.0) L 11/07/18 04:10 AST 7 U/L (13-39) L 11/07/18 04:10 ALT 4 U/L (7-52) L 11/07/18 04:10 Alkaline Phosphatase 42 U/L (34-104) 11/07/18 04:10 Creatine Kinase 11 U/L (30-223) L 11/02/18 15:40 Troponin I 0.01 ng/mL (0.01-0.05) 11/02/18 15:40 C-Reactive Protein 22.6 mg/dL (0.0-0.9) H 11/04/18 05:45 Total Protein 5.7 gm/dL (6.0-8.3) L 11/07/18 04:10 Albumin 2.3 gm/dL (4.2-5.5) L 11/07/18 04:10 Globulin 3.4 gm/dL 11/07/18 04:10 Albumin/Globulin Ratio 0.7 (1.0-1.8) L 11/07/18 04:10 Urine Source MIDSTREAM 11/03/18 18:30 Urine Color YELLOW 11/03/18 18:30 Urine Clarity HAZY (CLEAR) 11/03/18 18:30 Urine pH 5.5 (4.6 - 8.0) 11/03/18 18:30 Ur Specific [place] 1.025 (1.005-1.030) 11/03/18 18:30 Urine Protein 30 mg/dL (NEGATIVE) H 11/03/18 18:30 Urine Glucose (UA) NEGATIVE mg/dL (NEGATIVE) 11/03/18 18:30 Urine Ketones NEGATIVE mg/dL (NEGATIVE) 11/03/18 18:30 Urine Blood NEGATIVE (NEGATIVE) 11/03/18 18:30 Urine Nitrate NEGATIVE (NEGATIVE) 11/03/18 18:30 Urine Bilirubin NEGATIVE (NEGATIVE) 11/03/18 18:30 Urine Urobilinogen 0.2 E.U./dL (0.2 - 1.0) 11/03/18 18:30 Ur Leukocyte Esterase TRACE (NEGATIVE) H 11/03/18 18:30 Urine RBC NONE SEEN /hpf (0-5) 11/03/18 18:30 Urine WBC 6-10 /hpf (0-5) 11/03/18 18:30 Ur Epithelial Cells RARE /lpf (FEW) 11/03/18 18:30 Urine Bacteria FEW /hpf (NONE SEEN) 11/03/18 18:30 Stool Occult Blood POSITIVE (NEGATIVE) H 11/05/18 12:20 Stool Leukocyte MODERATE WBC SEEN 11/04/18 16:45 - Physical Exam Vitals and I&O: Vital Signs Temp 89 F 11/08/18 00:04 Pulse 89 11/08/18 00:04 Resp 20 11/08/18 00:04 BP 107/70 11/08/18 00:04 Pulse Ox 98 11/08/18 00:04 Intake & Output 11/07/18 11/07/18 11/08/18 06:59 18:59 06:59 Intake Total 775 32.5 Balance 775 32.5 Weight (lbs) 80.286 kg Intake: Intake, IV Amount 55 32.5 0.9% NS w/20 mEq KCL 1, 55 32.5 000 ml @ 75 mls/hr IV . [id number] [facility] Rx#:[id number] Oral 720 Other: # Voids 5 # Bowel Movements 5 Stool Characteristics Soft Soft Liquid Liquid Brown Brown Weight Source Bedscale Active Medications: Current Medications Cholestyramine Resin (Questran) 4 gm PO 1000 [facility] Stop: 01/03/19 08:59 Last Admin: 11/07/18 09:24 Dose: 4 gm Gabapentin (Neurontin) 300 mg PO DAILY [facility] Stop: 01/05/19 15:29 Last Admin: 11/07/18 09:23 Dose: 300 mg Potassium Chloride/Sodium Chloride (0.9% Ns W/20 Meq Kcl) 1,000 mls @ 75 mls/ hr IV .[id number] [facility] Stop: 01/04/19 15:08 Last Admin: 11/07/18 23:50 Dose: 75 mls/hr Magnesium Oxide (Mag-Oxide) 400 mg PO DAILY [facility] Stop: 01/05/19 08:59 Last Admin: 11/07/18 09:23 Dose: 400 mg Pantoprazole Sodium (Protonix) 40 mg IVP DAILY [facility] Stop: 01/02/19 08:59 Last Admin: 11/07/18 09:24 Dose: 40 mg Vancomycin HCl (Vancomycin Oral) 250 mg PO QID [facility] Stop: 01/03/19 08:59 Last Admin: 11/07/18 20:34 Dose: 250 mg General: no acute distress, well developed, well nourished HEENT: atraumatic, normocephalic, PERRLA, EOMI Neck: supple, no thyromegaly Cardiovascular: S1S2, regular Lungs: clear to auscultation bilaterally, clear to percussion, no crackles Abdomen: soft, bowel sounds, no tender, no distended, no mass, no rebound, no hepatomegaly, no splenomegaly Extremities: no cyanosis, no clubbing, no edema Neurological: awake, alert, oriented Infectious Disease Assmt/Plan - Assessment Assessment: 1. Sepsis improving. 2. C diff colitis. 3. ? Pneumonia. 4. HTN. 5. DM2. 6. Anemia of CD. 7. Hypomagnesemia. 8. Hypokalemia. 9. h/o abdominal surgery. - Plan Plan: Continue vanco IV and Questran. Nutritional Asmnt/Malnutr-PDOC - Dietary Evaluation Malnutrition Findings (Please click <Entered> for more info): Nutritional Asmnt/Malnutrition Start: 11/03/18 16: 17 Text: Status: Complete Freq: Protocol: Document 11/03/18 16:21 RUSS (Rec: 11/03/18 16:28 [email or web address]) Nutritional Asmnt/Malnutrition Patient General Information Nutritional Screening High Risk Consult Diagnosis PNEUMONIA, SEPSIS Pertinent Medical Hx/Surgical Hx DEMENTIA, HTN Subjective Information IA, CONSULT: BLOOD SUGAR 187 PT DOWNGRADED TO MODERATE RISK HE IS EATING, WILL ASSESS/ MONITOR NUTRITION RELATED LABS AND PO INTAKE. PT IS A 58 YEAR OLD MALE ADMITTED ON 11/02 C/O FEVER, COUGH, CONGESTION, AND WEAKNESS X3 DAYS. PT ATE 100% OF SNACK PROVIDED. HT: 61 WT: 177 LB (80.45 KG) BMI: 23.35 (NORMAL) GI: WNL, SOFT, ROUND, NON- TENDER BM: 11/03 X3 (DIARRHEA) I/O: 872/NOT NOTED SKIN: WNL, WARM, DRY, ELASTIC, INTACT TRISTON: 17 DIET ORDER: CCHO 45GM, ELA, HIGH PROTEIN ESTIMATED ENERGY NEEDS: ( GERIATRIC, CBW) 6369-9810 KCALS (25-30 KCALS/ KG) 80-97 G PRO (1.0-1.2 G/KG) 6708-0998 ML (25-30 ML/KG) Current Diet Order/ Nutrition Support CCHO 45GM, ELA, HIGH PROTEIN Pertinent Medications PROTONIX, NACL 0.9% Pertinent Labs 11/02: HGB/HCT: 8.8/27.0, POTASS 3.3, BUN/CR 17/0.6, GLUCOSE 187, CA 8.4, AST 8, ALB 3.0 Nutritional Hx/Data Height 1.85 m Height (Calculated Centimeters) 185.4 Current Weight (lbs) 80.286 kg Weight (Calculated Kilograms) 80.3 Weight (Calculated Grams) 45452.8 [place] Body Weight 184 LB (83.64 KG) % [place] Body Weight 96 Body Mass Index (BMI) 23.3 Weight Status Approriate GI Symptoms GI Symptoms None Last BM 11/03 X3 (DIARRHEA) Skin Integrity/Comment: WNL, WARM, DRY, ELASTIC, INTACT TRISTON: 17 Estimated Nutritional Goals BEE in Kcals: Using Current wt Calories/Kcals/Kg 25-30 Kcals Calculated 6192-3083 Protein: Using Current wt Protein g/k.0-1.2 Protein Calculated 80-97 Fluid: ml 5551-4028 ML (25-30 ML/KG) Nutritional Problem 1. Problem Problem ALTERED NUTRITION RELATED LABS Etiology R/T PATHOPHYSIOLOGICAL CAUSES Signs/Symptoms: AEB POTASS 3.3, GLUCOSE 187, CA 8.4 Malnutrition Related to Morbid Obesity Malnutrition related to morbid obesity No Intervention/Recommendation Comments CONTINUE CCHO 45GM, ELA, HIGH PROTEIN DIET ORDERED. Expected Outcomes/Goals Expected Outcomes/Goals 1. PO INTAKE TO MEET 75% OF NUTRITIONAL NEEDS. 2. MONITOR NPO STATUS, WT, NUTRITION RELATED LABS AND SKIN INTEGRITY. 3. NUTRITION RELATED LABS TO TREND WNL. 4. F/U HIGH RISK IN 2-3 DAYS, 11/05-11/06
[2018-11-08 05:19] LABS: % BASOPHILS 1.3 % (0.0-2.0); % EOSINOPHILS 1.6 % (0.0-5.0); % LYMPHOCYTES 21.5 % (20.0-50.0); % MONOCYTES 10.8 % (2.0-10.0); % NEUTROPHILS 64.8 % (40.0-80.0); BASOPHILE ABSOLUTE 0.1 Th/cumm (0-0.2); EOSINOPHILE ABSOLUTE 0.1 Th/cmm (0.1-0.4); HEMATOCRIT 24.7 % (41.0-60); HEMOGLOBIN 8.2 gm/dL (12-16); LYMPHOCYTE ABSOLUTE 1.9 Th/cmm (1.5-3.0); MEAN CELL VOLUME 86.5 fl (80-99); MEAN CORPUSCULAR HEMOGLOBIN 28.9 pg (26.0-30.0); MEAN CORPUSCULAR HGB CONC 33.4 pg (28.0-36.0); MONOCYTE ABSOLUTE 0.9 Th/cmm (0.3-1.0); NEUTROPHILE ABSOLUTE 5.7 Th/cmm (1.8-8.0); PLATELET COUNT 410 Th/cmm (150-400); RED BLOOD COUNT 2.85 Mil/cmm (4.30-5.70); RED CELL DISTRIBUTION WIDTH 19.2 % (11.5-20.0); WHITE BLOOD COUNT 8.7 Th/cmm (4.8-10.8)
[2018-11-08 05:38] LABS: ANION GAP 10.3 (7.0-16.0); BUN - UREA NITROGEN 4 mg/dL (7-25); CALCIUM SERUM 7.9 mg/dL (8.6-10.3); CARBON DIOXIDE 22.1 mEq/L (21.0-31.0); CHLORIDE 108 mEq/L (98-107); CREATININE - SERUM 0.4 mg/dL (0.7-1.3); GFR AFRICAN-AMERICAN > 60.0 ml/min (>90); GFR NON AFRICAN-AMERICAN > 60.0 ml/min; GLUCOSE 134 mg/dL (70-105); MAGNESIUM 1.8 mg/dL (1.9-2.7); POTASSIUM SERUM 3.4 mEq/L (3.5-5.1); SODIUM SERUM 137 mEq/L (136-145)
--- NOTE | 2018-11-08 10:43 | Diagnostic Imaging Report ---
Radionuclide biliary scan (HIDA scan) HISTORY: Pain, dilated gallbladder 5.4 mCi technetium labeled biliary nuclide used in the exam. The exam demonstrates normal hepatic uptake and clearance. Normal excretion of nuclide into the gallbladder. Slight delay in excretion of nuclide into the small bowel. Significance should be correlated clinically and with laboratory data. IMPRESSION: 1. Normal visualization of the gallbladder 2. Slight delay in excretion of nuclide into the small bowel. Significance should be correlated clinically and with laboratory data. Sonography may be helpful for assessment of the common bile duct caliber.
[2018-11-08] MEDS: Vancomycin HCL 250 mg /10mL UDC PO SCH ×2 (10:53→12:59)
--- NOTE | 2018-11-08 12:01 | Infectious Disease Prog Note ---
Infectious Disease Subjective - Review of Systems Service Date: 11/08/18 Subjective: diarrhea improved. Infectious Disease Objective - Results Result Diagrams: 11/08/18 04:10 11/08/18 04:10 Recent Labs: Laboratory Last Values WBC 8.7 Th/cmm (4.8-10.8) 11/08/18 04:10 RBC 2.85 Mil/cmm (4.30-5.70) L 11/08/18 04:10 Hgb 8.2 gm/dL (12-16) L 11/08/18 04:10 Hct 24.7 % (41.0-60) L 11/08/18 04:10 MCV 86.5 fl (80-99) 11/08/18 04:10 MCH 28.9 pg (26.0-30.0) 11/08/18 04:10 MCHC Differential 33.4 pg (28.0-36.0) 11/08/18 04:10 RDW 19.2 % (11.5-20.0) 11/08/18 04:10 Plt Count 410 Th/cmm (150-400) H 11/08/18 04:10 MPV 7.6 fl 11/08/18 04:10 Add Manual Diff YES 11/07/18 04:10 Neutrophils % 64.8 % (40.0-80.0) 11/08/18 04:10 Band Neutrophils % 3 % (0-10) 11/07/18 04:10 Lymphocytes % 21.5 % (20.0-50.0) 11/08/18 04:10 Monocytes % 10.8 % (2.0-10.0) H 11/08/18 04:10 Eosinophils % 1.6 % (0.0-5.0) 11/08/18 04:10 Basophils % 1.3 % (0.0-2.0) 11/08/18 04:10 Neutrophils (Manual) 69 % (40-80) 11/07/18 04:10 Lymphocytes 21 % (20-50) 11/07/18 04:10 Monocytes 5 % (2-10) 11/07/18 04:10 Eosinophils 2 % (0-5) 11/07/18 04:10 Basophils 0 % (0-3) 11/07/18 04:10 Platelet Estimate INCREASED PLATELETS (NORMAL) 11/02/18 15:40 PT 11.0 SECONDS (9.5-11.5) 11/02/18 15:40 INR 1.06 (0.5-1.4) 11/02/18 15:40 PTT (Actin FS) 30.1 SECONDS (26.0-38.0) 11/02/18 15:40 Sodium 137 mEq/L (136-145) 11/08/18 04:10 Potassium 3.4 mEq/L (3.5-5.1) L 11/08/18 04:10 Chloride 108 mEq/L (98-107) H 11/08/18 04:10 Carbon Dioxide 22.1 mEq/L (21.0-31.0) 11/08/18 04:10 Anion Gap 10.3 (7.0-16.0) 11/08/18 04:10 BUN 4 mg/dL (7-25) L 11/08/18 04:10 Creatinine 0.4 mg/dL (0.7-1.3) L 11/08/18 04:10 Est GFR ( Amer) > 60.0 ml/min (>90) 11/08/18 04:10 Est GFR (Non-Af Amer) > 60.0 ml/min 11/08/18 04:10 BUN/Creatinine Ratio 10.0 11/08/18 04:10 Glucose 134 mg/dL (70-105) H 11/08/18 04:10 Whole Bld Lactic Acid 0.73 mmol/L (0.60-1.99) 11/02/18 15:40 Calcium 7.9 mg/dL (8.6-10.3) L 11/08/18 04:10 Magnesium 1.8 mg/dL (1.9-2.7) L 11/08/18 04:10 Total Bilirubin 0.2 mg/dL (0.3-1.0) L 11/07/18 04:10 AST 7 U/L (13-39) L 11/07/18 04:10 ALT 4 U/L (7-52) L 11/07/18 04:10 Alkaline Phosphatase 42 U/L (34-104) 11/07/18 04:10 Creatine Kinase 11 U/L (30-223) L 11/02/18 15:40 Troponin I 0.01 ng/mL (0.01-0.05) 11/02/18 15:40 C-Reactive Protein 22.6 mg/dL (0.0-0.9) H 11/04/18 05:45 Total Protein 5.7 gm/dL (6.0-8.3) L 11/07/18 04:10 Albumin 2.3 gm/dL (4.2-5.5) L 11/07/18 04:10 Globulin 3.4 gm/dL 11/07/18 04:10 Albumin/Globulin Ratio 0.7 (1.0-1.8) L 11/07/18 04:10 Urine Source MIDSTREAM 11/03/18 18:30 Urine Color YELLOW 11/03/18 18:30 Urine Clarity HAZY (CLEAR) 11/03/18 18:30 Urine pH 5.5 (4.6 - 8.0) 11/03/18 18:30 Ur Specific [place] 1.025 (1.005-1.030) 11/03/18 18:30 Urine Protein 30 mg/dL (NEGATIVE) H 11/03/18 18:30 Urine Glucose (UA) NEGATIVE mg/dL (NEGATIVE) 11/03/18 18:30 Urine Ketones NEGATIVE mg/dL (NEGATIVE) 11/03/18 18:30 Urine Blood NEGATIVE (NEGATIVE) 11/03/18 18:30 Urine Nitrate NEGATIVE (NEGATIVE) 11/03/18 18:30 Urine Bilirubin NEGATIVE (NEGATIVE) 11/03/18 18:30 Urine Urobilinogen 0.2 E.U./dL (0.2 - 1.0) 11/03/18 18:30 Ur Leukocyte Esterase TRACE (NEGATIVE) H 11/03/18 18:30 Urine RBC NONE SEEN /hpf (0-5) 11/03/18 18:30 Urine WBC 6-10 /hpf (0-5) 11/03/18 18:30 Ur Epithelial Cells RARE /lpf (FEW) 11/03/18 18:30 Urine Bacteria FEW /hpf (NONE SEEN) 11/03/18 18:30 Stool Occult Blood POSITIVE (NEGATIVE) H 11/05/18 12:20 Stool Leukocyte MODERATE WBC SEEN 11/04/18 16:45 - Physical Exam Vitals and I&O: Vital Signs Temp 96.2 F 11/08/18 07:41 Pulse 74 11/08/18 07:47 Resp 18 11/08/18 07:47 BP 117/70 11/08/18 07:41 Pulse Ox 96 11/08/18 07:47 Intake & Output 11/07/18 11/08/18 11/08/18 18:59 06:59 18:59 Intake Total 775 101.25 718.75 Balance 775 101.25 718.75 Weight (lbs) 80.286 kg 77.111 kg Intake: Intake, IV Amount 55 101.25 718.75 0.9% NS w/20 mEq KCL 1, 55 101.25 718.75 000 ml @ 75 mls/hr IV . [id number] [facility] Rx#:[id number] Oral 720 Other: # Voids 5 1 # Bowel Movements 5 1 Stool Characteristics Soft Soft Soft Liquid Liquid Liquid Brown Brown Brown Weight Source Bedscale Bedscale Active Medications: Current Medications Cholestyramine Resin (Questran) 4 gm PO 1000 [facility] Stop: 01/03/19 08:59 Last Admin: 11/08/18 10:52 Dose: 4 gm Gabapentin (Neurontin) 300 mg PO DAILY [facility] Stop: 01/05/19 15:29 Last Admin: 11/08/18 10:52 Dose: 300 mg Potassium Chloride/Sodium Chloride (0.9% Ns W/20 Meq Kcl) 1,000 mls @ 75 mls/ hr IV .[id number] [facility] Stop: 01/04/19 15:08 Last Admin: 11/08/18 10:25 Dose: 75 mls/hr Magnesium Oxide (Mag-Oxide) 400 mg PO DAILY [facility] Stop: 01/05/19 08:59 Last Admin: 11/08/18 10:53 Dose: 400 mg Pantoprazole Sodium (Protonix) 40 mg IVP DAILY [facility] Stop: 01/02/19 08:59 Last Admin: 11/08/18 10:53 Dose: 40 mg Potassium Chloride (Klor-Con) 40 meq PO X1 ONE Stop: 11/08/18 11:21 Vancomycin HCl (Vancomycin Oral) 250 mg PO QID [facility] Stop: 01/03/19 08:59 Last Admin: 11/08/18 10:53 Dose: 250 mg General: no acute distress, well developed, well nourished HEENT: atraumatic, normocephalic, PERRLA, EOMI Neck: supple, no thyromegaly Cardiovascular: S1S2, regular Lungs: clear to auscultation bilaterally, clear to percussion Abdomen: soft, bowel sounds, no tender, no distended, no rebound Extremities: no cyanosis, no clubbing, no edema Neurological: awake, alert, oriented Skin: intact Infectious Disease Assmt/Plan - Assessment Assessment: 1. Sepsis improving. 2. C diff colitis. 3. ? Pneumonia. 4. HTN. 5. DM2. 6. Anemia of CD. 7. Hypomagnesemia. 8. Hypokalemia. 9. h/o abdominal surgery. - Plan Plan: Continue vanco po for 10 days, and Questran. PT eval and DC plan Nutritional Asmnt/Malnutr-PDOC - Dietary Evaluation Malnutrition Findings (Please click <Entered> for more info): Nutritional Asmnt/Malnutrition Start: 11/03/18 16: 17 Text: Status: Complete Freq: Protocol: Document 11/03/18 16:21 RUSS (Rec: 11/03/18 16:28 RUSS [email or web address]) Nutritional Asmnt/Malnutrition Patient General Information Nutritional Screening High Risk Consult Diagnosis PNEUMONIA, SEPSIS Pertinent Medical Hx/Surgical Hx DEMENTIA, HTN Subjective Information IA, CONSULT: BLOOD SUGAR 187 PT DOWNGRADED TO MODERATE RISK HE IS EATING, WILL ASSESS/ MONITOR NUTRITION RELATED LABS AND PO INTAKE. PT IS A 58 YEAR OLD MALE ADMITTED ON 11/02 C/O FEVER, COUGH, CONGESTION, AND WEAKNESS X3 DAYS. PT ATE 100% OF SNACK PROVIDED. HT: 61 WT: 177 LB (80.45 KG) BMI: 23.35 (NORMAL) GI: WNL, SOFT, ROUND, NON- TENDER BM: 11/03 X3 (DIARRHEA) I/O: 872/NOT NOTED SKIN: WNL, WARM, DRY, ELASTIC, INTACT TRISTON: 17 DIET ORDER: CCHO 45GM, ELA, HIGH PROTEIN ESTIMATED ENERGY NEEDS: ( GERIATRIC, CBW) 2138-0573 KCALS (25-30 KCALS/ KG) 80-97 G PRO (1.0-1.2 G/KG) 8596-5359 ML (25-30 ML/KG) Current Diet Order/ Nutrition Support CCHO 45GM, ELA, HIGH PROTEIN Pertinent Medications PROTONIX, NACL 0.9% Pertinent Labs 11/02: HGB/HCT: 8.8/27.0, POTASS 3.3, BUN/CR 17/0.6, GLUCOSE 187, CA 8.4, AST 8, ALB 3.0 Nutritional Hx/Data Height 1.85 m Height (Calculated Centimeters) 185.4 Current Weight (lbs) 80.286 kg Weight (Calculated Kilograms) 80.3 Weight (Calculated Grams) 81562.8 [place] Body Weight 184 LB (83.64 KG) % [place] Body Weight 96 Body Mass Index (BMI) 23.3 Weight Status Approriate GI Symptoms GI Symptoms None Last BM 11/03 X3 (DIARRHEA) Skin Integrity/Comment: WNL, WARM, DRY, ELASTIC, INTACT TRISTON: 17 Estimated Nutritional Goals BEE in Kcals: Using Current wt Calories/Kcals/Kg 25-30 Kcals Calculated 2760-8173 Protein: Using Current wt Protein g/k.0-1.2 Protein Calculated 80-97 Fluid: ml 8612-9045 ML (25-30 ML/KG) Nutritional Problem 1. Problem Problem ALTERED NUTRITION RELATED LABS Etiology R/T PATHOPHYSIOLOGICAL CAUSES Signs/Symptoms: AEB POTASS 3.3, GLUCOSE 187, CA 8.4 Malnutrition Related to Morbid Obesity Malnutrition related to morbid obesity No Intervention/Recommendation Comments CONTINUE CCHO 45GM, ELA, HIGH PROTEIN DIET ORDERED. Expected Outcomes/Goals Expected Outcomes/Goals 1. PO INTAKE TO MEET 75% OF NUTRITIONAL NEEDS. 2. MONITOR NPO STATUS, WT, NUTRITION RELATED LABS AND SKIN INTEGRITY. 3. NUTRITION RELATED LABS TO TREND WNL. 4. F/U HIGH RISK IN 2-3 DAYS, 11/05-11/06
[2018-11-08] MEDS ORDERED: Potassium Chloride 20 mEq ER Tab PO ONE (12:15)
--- NOTE | 2018-11-08 12:24 | Discharge Summary ---
DATE OF DISCHARGE: 11/08/2018 CHIEF COMPLAINT: Diarrhea of fever, weakness, and shortness of breath, suspected pneumonia. HISTORY OF PRESENT ILLNESS AND HOSPITAL COURSE: The patient is a 58-year-old male with a past medical history of partial colectomy performed at [facility] in 08/2018, hypertension, dementia, brought in from nursing facility, [facility] for weakness, fatigue, pallor skin, chills, and dizziness. It was associated with the fever of 3 days. He also stated that he was having diarrhea for last 2 months after his surgery. On initial evaluation, his vital signs showed temperature 101 degrees Fahrenheit, pulse 121, respiration 18, blood pressure 94/61. WBC count was 13,100, hemoglobin 8.8, neutrophil 87%. As per the ER impression, the patient was diagnosed with sepsis and pneumonia. The patient was started on Zosyn and Zithromax. After discussion with the patient's sister, the patient was diagnosed to have collapsed bowel diagnosed at [facility] and required colectomy. The patient was suffering from anorexia and generalized weakness for the last few months. Most of the time, he is in bedridden. However, further workup revealed C. diff colitis. The patient's antibiotics were changed to vancomycin p.o. and Questran. The patient's diarrhea improved. The patient's sepsis improved. The patient is ready for discharge today. PT evaluation was requested. DISCHARGE DISPOSITION: Nursing facility [facility] under Dr. Olson. DISCHARGE MEDICATIONS: As per medication reconciliation sheet. In particular, vancomycin 250 mg p.o. 4 times a day for 10 days. DISCHARGE DIAGNOSES: Sepsis, clostridium difficile colitis, questionable pneumonia, hypokalemia, hypomagnesemia, hypertension, diabetes mellitus type 2, anemia of chronic disease, history of abdominal surgery, and bedridden status. DISCHARGE CONDITION: Stable. [facility]# [id number]
--- NOTE | 2018-11-08 14:11 | GI Progress Note ---
Subjective - Review of Systems Subjective: NO EVENTS DENIES DIARRHEA OR ABD PAIN GI OBJECTIVE - Results Result Diagrams: 11/08/18 04:10 11/08/18 04:10 Recent Labs: Laboratory Last Values WBC 8.7 Th/cmm (4.8-10.8) 11/08/18 04:10 RBC 2.85 Mil/cmm (4.30-5.70) L 11/08/18 04:10 Hgb 8.2 gm/dL (12-16) L 11/08/18 04:10 Hct 24.7 % (41.0-60) L 11/08/18 04:10 MCV 86.5 fl (80-99) 11/08/18 04:10 MCH 28.9 pg (26.0-30.0) 11/08/18 04:10 MCHC Differential 33.4 pg (28.0-36.0) 11/08/18 04:10 RDW 19.2 % (11.5-20.0) 11/08/18 04:10 Plt Count 410 Th/cmm (150-400) H 11/08/18 04:10 MPV 7.6 fl 11/08/18 04:10 Add Manual Diff YES 11/07/18 04:10 Neutrophils % 64.8 % (40.0-80.0) 11/08/18 04:10 Band Neutrophils % 3 % (0-10) 11/07/18 04:10 Lymphocytes % 21.5 % (20.0-50.0) 11/08/18 04:10 Monocytes % 10.8 % (2.0-10.0) H 11/08/18 04:10 Eosinophils % 1.6 % (0.0-5.0) 11/08/18 04:10 Basophils % 1.3 % (0.0-2.0) 11/08/18 04:10 Neutrophils (Manual) 69 % (40-80) 11/07/18 04:10 Lymphocytes 21 % (20-50) 11/07/18 04:10 Monocytes 5 % (2-10) 11/07/18 04:10 Eosinophils 2 % (0-5) 11/07/18 04:10 Basophils 0 % (0-3) 11/07/18 04:10 Platelet Estimate INCREASED PLATELETS (NORMAL) 11/02/18 15:40 PT 11.0 SECONDS (9.5-11.5) 11/02/18 15:40 INR 1.06 (0.5-1.4) 11/02/18 15:40 PTT (Actin FS) 30.1 SECONDS (26.0-38.0) 11/02/18 15:40 Sodium 137 mEq/L (136-145) 11/08/18 04:10 Potassium 3.4 mEq/L (3.5-5.1) L 11/08/18 04:10 Chloride 108 mEq/L (98-107) H 11/08/18 04:10 Carbon Dioxide 22.1 mEq/L (21.0-31.0) 11/08/18 04:10 Anion Gap 10.3 (7.0-16.0) 11/08/18 04:10 BUN 4 mg/dL (7-25) L 11/08/18 04:10 Creatinine 0.4 mg/dL (0.7-1.3) L 11/08/18 04:10 Est GFR ( Amer) > 60.0 ml/min (>90) 11/08/18 04:10 Est GFR (Non-Af Amer) > 60.0 ml/min 11/08/18 04:10 BUN/Creatinine Ratio 10.0 11/08/18 04:10 Glucose 134 mg/dL (70-105) H 11/08/18 04:10 Whole Bld Lactic Acid 0.73 mmol/L (0.60-1.99) 11/02/18 15:40 Calcium 7.9 mg/dL (8.6-10.3) L 11/08/18 04:10 Magnesium 1.8 mg/dL (1.9-2.7) L 11/08/18 04:10 Total Bilirubin 0.2 mg/dL (0.3-1.0) L 11/07/18 04:10 AST 7 U/L (13-39) L 11/07/18 04:10 ALT 4 U/L (7-52) L 11/07/18 04:10 Alkaline Phosphatase 42 U/L (34-104) 11/07/18 04:10 Creatine Kinase 11 U/L (30-223) L 11/02/18 15:40 Troponin I 0.01 ng/mL (0.01-0.05) 11/02/18 15:40 C-Reactive Protein 22.6 mg/dL (0.0-0.9) H 11/04/18 05:45 Total Protein 5.7 gm/dL (6.0-8.3) L 11/07/18 04:10 Albumin 2.3 gm/dL (4.2-5.5) L 11/07/18 04:10 Globulin 3.4 gm/dL 11/07/18 04:10 Albumin/Globulin Ratio 0.7 (1.0-1.8) L 11/07/18 04:10 Urine Source MIDSTREAM 11/03/18 18:30 Urine Color YELLOW 11/03/18 18:30 Urine Clarity HAZY (CLEAR) 11/03/18 18:30 Urine pH 5.5 (4.6 - 8.0) 11/03/18 18:30 Ur Specific [place] 1.025 (1.005-1.030) 11/03/18 18:30 Urine Protein 30 mg/dL (NEGATIVE) H 11/03/18 18:30 Urine Glucose (UA) NEGATIVE mg/dL (NEGATIVE) 11/03/18 18:30 Urine Ketones NEGATIVE mg/dL (NEGATIVE) 11/03/18 18:30 Urine Blood NEGATIVE (NEGATIVE) 11/03/18 18:30 Urine Nitrate NEGATIVE (NEGATIVE) 11/03/18 18:30 Urine Bilirubin NEGATIVE (NEGATIVE) 11/03/18 18:30 Urine Urobilinogen 0.2 E.U./dL (0.2 - 1.0) 11/03/18 18:30 Ur Leukocyte Esterase TRACE (NEGATIVE) H 11/03/18 18:30 Urine RBC NONE SEEN /hpf (0-5) 11/03/18 18:30 Urine WBC 6-10 /hpf (0-5) 11/03/18 18:30 Ur Epithelial Cells RARE /lpf (FEW) 11/03/18 18:30 Urine Bacteria FEW /hpf (NONE SEEN) 11/03/18 18:30 Stool Occult Blood POSITIVE (NEGATIVE) H 11/05/18 12:20 Stool Leukocyte MODERATE WBC SEEN 11/04/18 16:45 - Physical Exam Vitals and I&O: Vital Signs Temp 96.1 F 11/08/18 12:07 Pulse 78 11/08/18 12:07 Resp 18 11/08/18 12:07 BP 108/70 11/08/18 12:07 Pulse Ox 99 11/08/18 12:07 Intake & Output 11/07/18 11/08/18 11/08/18 18:59 06:59 18:59 Intake Total 775 101.25 718.75 Balance 775 101.25 718.75 Weight (lbs) 80.286 kg 77.111 kg Intake: Intake, IV Amount 55 101.25 718.75 0.9% NS w/20 mEq KCL 1, 55 101.25 718.75 000 ml @ 75 mls/hr IV . [id number] Rx#:[id number] Oral 720 Other: # Voids 5 1 # Bowel Movements 5 1 Stool Characteristics Soft Soft Soft Liquid Liquid Liquid Brown Brown Brown Weight Source Bedscale Bedscale Active Medications: Current Medications Cholestyramine Resin (Questran) 4 gm PO 1000 [facility] Stop: 01/03/19 08:59 Last Admin: 11/08/18 10:52 Dose: 4 gm Gabapentin (Neurontin) 300 mg PO DAILY [facility] Stop: 01/05/19 15:29 Last Admin: 11/08/18 10:52 Dose: 300 mg Potassium Chloride/Sodium Chloride (0.9% Ns W/20 Meq Kcl) 1,000 mls @ 75 mls/ hr IV .[id number] [facility] Stop: 01/04/19 15:08 Last Admin: 11/08/18 10:25 Dose: 75 mls/hr Magnesium Oxide (Mag-Oxide) 400 mg PO DAILY [facility] Stop: 01/05/19 08:59 Last Admin: 11/08/18 10:53 Dose: 400 mg Pantoprazole Sodium (Protonix) 40 mg IVP DAILY [facility] Stop: 01/02/19 08:59 Last Admin: 11/08/18 10:53 Dose: 40 mg Vancomycin HCl (Vancomycin Oral) 250 mg PO QID [facility] Stop: 01/03/19 08:59 Last Admin: 11/08/18 12:59 Dose: 250 mg Assessment/Plan - Assessment Assessment: 58 MALE WITH DIARRHEA DUE TO CDIFF WITH HX OF RECENT PARTIAL COLON RESECTION SEEMS TO BE IMPROVED ALSO HAS DILATED GB ON CT OF UNCLEAR ETIOLOGY BUT COULD BE FROM FASTING HIDA SHOWED NO CHOLECYSTITIS LFTS ARE NORMAL WITH NO EVIDENCE TO SUGGEST CHOLESTASIS 1.CONT SUPP CARE 2.TOLD PT TO F/U WITH PCP TO HAVE THE GB RE-IMAGED IN 1-3 MONTHS; HE UNDERSTANDS AND AGREES 3.CONT ABX
--- NOTE | 2018-11-08 14:46 | General Progress Note ---
Subjective - Review of Systems Service Date: 11/08/18 Subjective: alert, min diarrhea Objective - Results Result Diagrams: 11/08/18 04:10 11/08/18 04:10 Recent Labs: Laboratory Last Values WBC 8.7 Th/cmm (4.8-10.8) 11/08/18 04:10 RBC 2.85 Mil/cmm (4.30-5.70) L 11/08/18 04:10 Hgb 8.2 gm/dL (12-16) L 11/08/18 04:10 Hct 24.7 % (41.0-60) L 11/08/18 04:10 MCV 86.5 fl (80-99) 11/08/18 04:10 MCH 28.9 pg (26.0-30.0) 11/08/18 04:10 MCHC Differential 33.4 pg (28.0-36.0) 11/08/18 04:10 RDW 19.2 % (11.5-20.0) 11/08/18 04:10 Plt Count 410 Th/cmm (150-400) H 11/08/18 04:10 MPV 7.6 fl 11/08/18 04:10 Add Manual Diff YES 11/07/18 04:10 Neutrophils % 64.8 % (40.0-80.0) 11/08/18 04:10 Band Neutrophils % 3 % (0-10) 11/07/18 04:10 Lymphocytes % 21.5 % (20.0-50.0) 11/08/18 04:10 Monocytes % 10.8 % (2.0-10.0) H 11/08/18 04:10 Eosinophils % 1.6 % (0.0-5.0) 11/08/18 04:10 Basophils % 1.3 % (0.0-2.0) 11/08/18 04:10 Neutrophils (Manual) 69 % (40-80) 11/07/18 04:10 Lymphocytes 21 % (20-50) 11/07/18 04:10 Monocytes 5 % (2-10) 11/07/18 04:10 Eosinophils 2 % (0-5) 11/07/18 04:10 Basophils 0 % (0-3) 11/07/18 04:10 Platelet Estimate INCREASED PLATELETS (NORMAL) 11/02/18 15:40 PT 11.0 SECONDS (9.5-11.5) 11/02/18 15:40 INR 1.06 (0.5-1.4) 11/02/18 15:40 PTT (Actin FS) 30.1 SECONDS (26.0-38.0) 11/02/18 15:40 Sodium 137 mEq/L (136-145) 11/08/18 04:10 Potassium 3.4 mEq/L (3.5-5.1) L 11/08/18 04:10 Chloride 108 mEq/L (98-107) H 11/08/18 04:10 Carbon Dioxide 22.1 mEq/L (21.0-31.0) 11/08/18 04:10 Anion Gap 10.3 (7.0-16.0) 11/08/18 04:10 BUN 4 mg/dL (7-25) L 11/08/18 04:10 Creatinine 0.4 mg/dL (0.7-1.3) L 11/08/18 04:10 Est GFR ( Amer) > 60.0 ml/min (>90) 11/08/18 04:10 Est GFR (Non-Af Amer) > 60.0 ml/min 11/08/18 04:10 BUN/Creatinine Ratio 10.0 11/08/18 04:10 Glucose 134 mg/dL (70-105) H 11/08/18 04:10 Whole Bld Lactic Acid 0.73 mmol/L (0.60-1.99) 11/02/18 15:40 Calcium 7.9 mg/dL (8.6-10.3) L 11/08/18 04:10 Magnesium 1.8 mg/dL (1.9-2.7) L 11/08/18 04:10 Total Bilirubin 0.2 mg/dL (0.3-1.0) L 11/07/18 04:10 AST 7 U/L (13-39) L 11/07/18 04:10 ALT 4 U/L (7-52) L 11/07/18 04:10 Alkaline Phosphatase 42 U/L (34-104) 11/07/18 04:10 Creatine Kinase 11 U/L (30-223) L 11/02/18 15:40 Troponin I 0.01 ng/mL (0.01-0.05) 11/02/18 15:40 C-Reactive Protein 22.6 mg/dL (0.0-0.9) H 11/04/18 05:45 Total Protein 5.7 gm/dL (6.0-8.3) L 11/07/18 04:10 Albumin 2.3 gm/dL (4.2-5.5) L 11/07/18 04:10 Globulin 3.4 gm/dL 11/07/18 04:10 Albumin/Globulin Ratio 0.7 (1.0-1.8) L 11/07/18 04:10 Urine Source MIDSTREAM 11/03/18 18:30 Urine Color YELLOW 11/03/18 18:30 Urine Clarity HAZY (CLEAR) 11/03/18 18:30 Urine pH 5.5 (4.6 - 8.0) 11/03/18 18:30 Ur Specific [place] 1.025 (1.005-1.030) 11/03/18 18:30 Urine Protein 30 mg/dL (NEGATIVE) H 11/03/18 18:30 Urine Glucose (UA) NEGATIVE mg/dL (NEGATIVE) 11/03/18 18:30 Urine Ketones NEGATIVE mg/dL (NEGATIVE) 11/03/18 18:30 Urine Blood NEGATIVE (NEGATIVE) 11/03/18 18:30 Urine Nitrate NEGATIVE (NEGATIVE) 11/03/18 18:30 Urine Bilirubin NEGATIVE (NEGATIVE) 11/03/18 18:30 Urine Urobilinogen 0.2 E.U./dL (0.2 - 1.0) 11/03/18 18:30 Ur Leukocyte Esterase TRACE (NEGATIVE) H 11/03/18 18:30 Urine RBC NONE SEEN /hpf (0-5) 11/03/18 18:30 Urine WBC 6-10 /hpf (0-5) 11/03/18 18:30 Ur Epithelial Cells RARE /lpf (FEW) 11/03/18 18:30 Urine Bacteria FEW /hpf (NONE SEEN) 11/03/18 18:30 Stool Occult Blood POSITIVE (NEGATIVE) H 11/05/18 12:20 Stool Leukocyte MODERATE WBC SEEN 11/04/18 16:45 - Physical Exam Vitals and I&O: Vital Signs Temp 96.1 F 11/08/18 12:07 Pulse 78 11/08/18 12:07 Resp 18 11/08/18 12:07 BP 108/70 11/08/18 12:07 Pulse Ox 99 11/08/18 12:07 Intake & Output 11/07/18 11/08/18 11/08/18 18:59 06:59 18:59 Intake Total 775 101.25 718.75 Balance 775 101.25 718.75 Weight (lbs) 80.286 kg 77.111 kg Intake: Intake, IV Amount 55 101.25 718.75 0.9% NS w/20 mEq KCL 1, 55 101.25 718.75 000 ml @ 75 mls/hr IV . [id number] [facility] Rx#:[id number] Oral 720 Other: # Voids 5 1 # Bowel Movements 5 1 Stool Characteristics Soft Soft Soft Liquid Liquid Liquid Brown Brown Brown Weight Source Bedscale Bedscale Active Medications: Current Medications Cholestyramine Resin (Questran) 4 gm PO 1000 [facility] Stop: 01/03/19 08:59 Last Admin: 11/08/18 10:52 Dose: 4 gm Gabapentin (Neurontin) 300 mg PO DAILY [facility] Stop: 01/05/19 15:29 Last Admin: 11/08/18 10:52 Dose: 300 mg Potassium Chloride/Sodium Chloride (0.9% Ns W/20 Meq Kcl) 1,000 mls @ 75 mls/ hr IV .[id number] [facility] Stop: 01/04/19 15:08 Last Admin: 11/08/18 10:25 Dose: 75 mls/hr Magnesium Oxide (Mag-Oxide) 400 mg PO DAILY [facility] Stop: 01/05/19 08:59 Last Admin: 11/08/18 10:53 Dose: 400 mg Pantoprazole Sodium (Protonix) 40 mg IVP DAILY [facility] Stop: 01/02/19 08:59 Last Admin: 11/08/18 10:53 Dose: 40 mg Vancomycin HCl (Vancomycin Oral) 250 mg PO QID [facility] Stop: 01/03/19 08:59 Last Admin: 11/08/18 12:59 Dose: 250 mg General: Alert, Cooperative, Mild distress HEENT: Atraumatic, PERRLA, EOMI, Mucous membr. moist/pink Neck: Supple, +2 carotid pulse wo bruit Cardiovascular: Regular rate, Normal S1, Normal S2 Lungs: Clear to auscultation Abdomen: Bowel sounds, Soft Extremities: no Edema Neurological: Sensation intact Skin: no Rash Psych/Mental Status: Mood NL Assessment/Plan - Assessment Assessment: Hypokalemia Watery diarrhea 2/2 C. diff colitis Hypomagnesemia 2/2 diarrhea T2DM Anemia acute GI bleed on CD - Plan Plan: Lab - Result Diagrams 11/06/18 05:45 11/06/18 05:40 Current Medications Cholestyramine Resin (Questran) 4 gm PO 1000 [facility] Stop: 01/03/19 08:59 Last Admin: 11/06/18 09:41 Dose: 4 gm Potassium Chloride/Sodium Chloride (0.9% Ns W/20 Meq Kcl) 1,000 mls @ 75 mls/ hr IV .[id number] [facility] Stop: 01/04/19 15:08 Last Admin: 11/05/18 16:19 Dose: 75 mls/hr Magnesium Oxide (Mag-Oxide) 400 mg PO DAILY [facility] Stop: 01/05/19 08:59 Last Admin: 11/06/18 09:41 Dose: 400 mg Pantoprazole Sodium (Protonix) 40 mg IVP DAILY [facility] Stop: 01/02/19 08:59 Last Admin: 11/06/18 09:41 Dose: 40 mg Vancomycin HCl (Vancomycin Oral) 250 mg PO QID [facility] Stop: 01/03/19 08:59 Last Admin: 11/06/18 13:43 Dose: 250 mg Lab - Result Diagrams 11/08/18 04:10 11/08/18 04:10 K still low @ 3.4 as well as Mg 1.8 He still has watery diarrhea but less replace K, Mg on Vanco po Nutritional Asmnt/Malnutr-PDOC - Dietary Evaluation Malnutrition Findings (Please click <Entered> for more info): Nutritional Asmnt/Malnutrition Start: 11/03/18 16: 17 Text: Status: Complete Freq: Protocol: Document 11/03/18 16:21 RUSS (Rec: 11/03/18 16:28 [email or web address] [email or web address]) Nutritional Asmnt/Malnutrition Patient General Information Nutritional Screening High Risk Consult Diagnosis PNEUMONIA, SEPSIS Pertinent Medical Hx/Surgical Hx DEMENTIA, HTN Subjective Information IA, CONSULT: BLOOD SUGAR 187 PT DOWNGRADED TO MODERATE RISK HE IS EATING, WILL ASSESS/ MONITOR NUTRITION RELATED LABS AND PO INTAKE. PT IS A 58 YEAR OLD MALE ADMITTED ON 11/02 C/O FEVER, COUGH, CONGESTION, AND WEAKNESS X3 DAYS. PT ATE 100% OF SNACK PROVIDED. HT: 61 WT: 177 LB (80.45 KG) BMI: 23.35 (NORMAL) GI: WNL, SOFT, ROUND, NON- TENDER BM: 11/03 X3 (DIARRHEA) I/O: 872/NOT NOTED SKIN: WNL, WARM, DRY, ELASTIC, INTACT TRISTON: 17 DIET ORDER: CCHO 45GM, ELA, HIGH PROTEIN ESTIMATED ENERGY NEEDS: ( GERIATRIC, CBW) 8758-7081 KCALS (25-30 KCALS/ KG) 80-97 G PRO (1.0-1.2 G/KG) 6878-8325 ML (25-30 ML/KG) Current Diet Order/ Nutrition Support CCHO 45GM, ELA, HIGH PROTEIN Pertinent Medications PROTONIX, NACL 0.9% Pertinent Labs 11/02: HGB/HCT: 8.8/27.0, POTASS 3.3, BUN/CR 17/0.6, GLUCOSE 187, CA 8.4, AST 8, ALB 3.0 Nutritional Hx/Data Height 1.85 m Height (Calculated Centimeters) 185.4 Current Weight (lbs) 80.286 kg Weight (Calculated Kilograms) 80.3 Weight (Calculated Grams) 02485.8 [place] Body Weight 184 LB (83.64 KG) % [place] Body Weight 96 Body Mass Index (BMI) 23.3 Weight Status Approriate GI Symptoms GI Symptoms None Last BM 11/03 X3 (DIARRHEA) Skin Integrity/Comment: WNL, WARM, DRY, ELASTIC, INTACT TRISTON: 17 Estimated Nutritional Goals BEE in Kcals: Using Current wt Calories/Kcals/Kg 25-30 Kcals Calculated 4747-3938 Protein: Using Current wt Protein g/k.0-1.2 Protein Calculated 80-97 Fluid: ml 8616-3488 ML (25-30 ML/KG) Nutritional Problem 1. Problem Problem ALTERED NUTRITION RELATED LABS Etiology R/T PATHOPHYSIOLOGICAL CAUSES Signs/Symptoms: AEB POTASS 3.3, GLUCOSE 187, CA 8.4 Malnutrition Related to Morbid Obesity Malnutrition related to morbid obesity No Intervention/Recommendation Comments CONTINUE CCHO 45GM, ELA, HIGH PROTEIN DIET ORDERED. Expected Outcomes/Goals Expected Outcomes/Goals 1. PO INTAKE TO MEET 75% OF NUTRITIONAL NEEDS. 2. MONITOR NPO STATUS, WT, NUTRITION RELATED LABS AND SKIN INTEGRITY. 3. NUTRITION RELATED LABS TO TREND WNL. 4. F/U HIGH RISK IN 2-3 DAYS, 11/05-11/06
== END 2018-11-08 16:30 | DRG 720 ==
LOC: ER 14:45 → TELE 18:55 → UNDODISIN 11-07 15:50
PROVIDERS: ADMIT Internal Medicine Infectious Disease; ATTEND Internal Medicine Infectious Disease
DX: A41.9 Sepsis, unspecified organism (principal); E46 Unspecified protein-calorie malnutrition; A04.72 Enterocolitis due to Clostridium difficile, not specified as recurrent; R53.2 Functional quadriplegia; J18.9 Pneumonia, unspecified organism; E11.42 Type 2 diabetes mellitus with diabetic polyneuropathy; F03.90 Unspecified dementia, unspecified severity, without behavioral disturbance, psychotic disturbance, mood disturbance, and anxiety; K92.2 Gastrointestinal hemorrhage, unspecified; E83.42 Hypomagnesemia; E86.0 Dehydration; E11.65 Type 2 diabetes mellitus with hyperglycemia; D63.8 Anemia in other chronic diseases classified elsewhere; J44.0 Chronic obstructive pulmonary disease with (acute) lower respiratory infection; E87.6 Hypokalemia; I10 Essential (primary) hypertension; N40.0 Benign prostatic hyperplasia without lower urinary tract symptoms; H40.9 Unspecified glaucoma; Z68.22 Body mass index [BMI] 22.0-22.9, adult; Z74.01 Bed confinement status
CPT/HCPCS: 36415-UA; 71045-TC; 78226-TC; 80048-TC; 80053-TC; 81001-TC; 82270-TC; 82550-TC; 83036-90; 83605; 83735-TC; 84132-TC; 84484-TC; 85007-TC; 85025-TC; 85610-TC; 85730-TC; 86141-TC; 87046-90; 87086-90; 87230-TC; 89055-TC; 93005; 94760; A9537; C9113; J0456; J0696; J2543; J2997; J3370; J3475; J3480; J7030; X3904; Z7610

== ENCOUNTER 2018-11-22 05:16 | Emergency (ER) | payer MEDICAID ==
[2018-11-22] MEDS ORDERED: Sodium Chloride 0.9% 1,000 ML IV ONE ×2 (05:36→05:49)
--- NOTE | 2018-11-22 05:43 | ED Physician Chart ---
ED Chief Complaint/HPI - Patient Information Date Seen:: 11/22/18 Time Seen:: 05:38 Chief Complaint:: weakness History of Present Illness:: 58 yr old male [facility] [place] on arrival pt was weak hypotensive in the 60s systolic pt feeling very weak and has been having diarhea for few days and not taking much fluids pt has hx of stomach surgery in the past took 3/4 of his stomach because of twisting being blocked is al he knows pt awake alert verbalizing Allergies:: Allergies Allergy/AdvReac Type Severity Reaction Status Date / Time No Known Allergies Allergy Verified 11/22/18 05:30 ED Review of Systems - Review of Systems General/Constitutional: No fever, No chills, No weight loss, No weakness, No diaphoresis, No edema, No loss of appetite Skin: No skin lesions, No rash, No bruising Head: No headache, No light-headedness Eyes: No loss of vision, No pain, No diplopia ENT: No earache, No nasal drainage, No sore throat, No tinnitus Neck: No neck pain, No swelling, No thyromegaly, No stiffness, No mass noted Cardio Vascular: No chest pain, No palpitations, No PND, No orthopnea, No edema Pulmonary: No SOB, No cough, No sputum, No wheezing GI: No nausea, No vomiting, No diarrhea, No pain, No melena, No hematochezia, No constipation, No hematemesis G/U: No dysuria, No frequency, No hematuria Musculoskeletal: No bone or joint pain, No back pain, No muscle pain Endocrine: No polyuria, No polydipsia Psychiatric: No prior psych history, No depression, No anxiety, No suicidal ideation Hematopoietic: No bruising, No lymphadenopathy Allergic/Immuno: No urticaria, No angioedema Neurological: No syncope, No focal symptoms, No weakness, No paresthesia, No headache, No seizure, No dizziness, No confusion, No vertigo ED Past Medical History - Past Medical History Past Medical History: Other (cdiff sepsis pneumonia hypertension anemia dm bph neuropathy glaucoma cholesterol) Surgical History: other (abd surgery) Family Medical History - Family Member Mother History Unknown: Yes Ethnicity: Non- Living Status: Unknown ED Physical Exam - Physical Examination General/Constitutional: Awake, Well-developed, well-nourished, Alert, No distress, GCS 15, Non-toxic appearing, Ambulatory Head: Atraumatic Eyes: Lids, conjuctiva normal, PERRL, EOMI Skin: Nl inspection, No rash, No skin lesions, No ecchymosis, Well hydrated, No lymphadenopathy ENMT: External ears, nose nl, Nasal exam nl, Lips, teeth, gums nl Neck: Nontender, Full ROM w/o pain, No JVD, No nuchal rigidity, No bruit, No mass, No stridor Respiratory: Nl effort/Exclusion, Clear to Auscultation, No Wheeze/Rhonchi/Rales Cardio Vascular: RRR, No murmur, gallop, rubs, NL S1 S2 GI: No tenderness/rebounding/guarding, No organomegaly, No hernia, Normal BS's, Nondistended, No mass/bruits, No McBurney tenderness : No CVA tenderness Extremities: No tenderness or effusion, Full ROM, normal strength in all extremities, No edema, Normal digits & nails Neuro/Psych: Alert/oriented, DTR's symmetric, Normal sensory exam, Normal motor strength, Judgement/insight normal, Mood normal, Normal gait, No focal deficits Misc: Normal back, No paraspinal tenderness ED Assessment - Assessment General Assessment: cdiff diarhea weakness hypotension ED Septic Shock - . Is Septic Shock (SBP<90, OR Lactate>4 mmol\L) present?: No ED Reassessment (Disposition) - Reassessment Reassessment:: juditff hypotension weakness - Diagnosis Diagnosis:: as above - Patient Disposition Discharge/Transfer:: Acute Care w/in this hosp Condition at Disposition:: Critical
[2018-11-22 05:58] LABS: % EOSINOPHILS 0.4 % (0.0-5.0); % LYMPHOCYTES 11.1 % (20.0-50.0); % MONOCYTES 3.8 % (2.0-10.0); % NEUTROPHILS 84.7 % (40.0-80.0); HEMATOCRIT 25.5 % (41.0-60); HEMOGLOBIN 8.6 gm/dL (12-16); LYMPHOCYTE ABSOLUTE 1.3 Th/cmm (1.5-3.0); MEAN CELL VOLUME 87.4 fl (80-99); MEAN CORPUSCULAR HEMOGLOBIN 29.4 pg (26.0-30.0); MEAN CORPUSCULAR HGB CONC 33.6 pg (28.0-36.0); MONOCYTE ABSOLUTE 0.4 Th/cmm (0.3-1.0); NEUTROPHILE ABSOLUTE 9.9 Th/cmm (1.8-8.0); PLATELET COUNT 456 Th/cmm (150-400); RED BLOOD COUNT 2.92 Mil/cmm (4.30-5.70); RED CELL DISTRIBUTION WIDTH 19.1 % (11.5-20.0); WHITE BLOOD COUNT 11.6 Th/cmm (4.8-10.8)
[2018-11-22 06:36] LABS: ALKALINE PHOSPHATASE 54 U/L (34-104); AMYLASE SERUM 54 U/L (29-103); ANION GAP 14.9 (7.0-16.0); BILIRUBIN,TOTAL 0.4 mg/dL (0.3-1.0); BUN - UREA NITROGEN 15 mg/dL (7-25); CALCIUM SERUM 8.6 mg/dL (8.6-10.3); CARBON DIOXIDE 21.5 mEq/L (21.0-31.0); CHLORIDE 105 mEq/L (98-107); GFR AFRICAN-AMERICAN > 60.0 ml/min (>90); GFR NON AFRICAN-AMERICAN > 60.0 ml/min; GLUCOSE 187 mg/dL (70-105); LIPASE 22 U/L (11-82); POTASSIUM SERUM 3.4 mEq/L (3.5-5.1); SGOT 7 U/L (13-39); SGPT/ALT 6 U/L (7-52); SODIUM SERUM 138 mEq/L (136-145); TOTAL PROTEIN,SERUM 6.8 gm/dL (6.0-8.3)
[2018-11-22] MEDS ORDERED: Potassium Chloride 20 mEq ER Tab PO ONE ×2 (06:56→06:57)
[2018-11-22 08:08] LABS: ALB/GLOB RATIO 0.8 (1.0-1.8)
[2018-11-22] MEDS ORDERED: Vancomycin HCL 250 mg /10mL UDC PO ONE (09:30)
== END 2018-11-22 12:50 | disposition short-term general hospital (02) ==
LOC: ER 05:16
DX: A04.72 Enterocolitis due to Clostridium difficile, not specified as recurrent (principal); E86.0 Dehydration; E87.6 Hypokalemia; D72.829 Elevated white blood cell count, unspecified; D64.9 Anemia, unspecified; E87.2 Acidosis; E88.09 Other disorders of plasma-protein metabolism, not elsewhere classified; I95.9 Hypotension, unspecified; R73.9 Hyperglycemia, unspecified
CPT/HCPCS: 99285; 36415; 83605 ×2; 85025; 82150; 83690; 80053; 87081; 87040 ×2; J3370; J7030